=== PATIENT | male | born 1970 | race Asian ===

== ENCOUNTER 2017-08-04 17:38 | Inpatient (IN) | payer OTHER ==
[~2017-08-04] VITALS: Ht 180.3 cm; Wt 105.9 kg
--- NOTE | 2017-08-04 18:44 | ED GENERAL ADULT ---
History of Present Illness General Chief Complaint: General Adult Stated Complaint: SIB DR. MCMULLEN FOR FEVER, TRACHYCARDIA Source: patient, family Exam Limitations: no limitations Vital Signs & Intake/Output Vital Signs & Intake/Output Vital Signs Date Time Temp Pulse Resp B/P B/P Pulse O2 O2 Flow FiO2 Mean Ox Delivery Rate 08/04 2202 99.0 90 18 123/79 95 Room Air 08/04 1955 100.3 08/04 1919 103.1 08/04 1842 101.8 08/04 1821 Room Air 08/04 1807 103.0 114 15 121/83 96 Room Air Room Air ED Intake and Output 08/05 0000 08/04 1200 Intake Total 2200 Output Total Balance 2200 Intake, IV 2200 Patient 230 lb Weight Weight Reported by Patient Measurement Method Allergies Coded Allergies: No Known Allergies (08/04/17) Reconcile Medications Aspirin (Ecotrin*) 81 MG TABLET.DR 1 TAB PO DAILY HEART/BLOOD (Reported) Atorvastatin Calcium 20 MG TABLET 1 TAB PO DAILY CHOLESTEROL (Reported) Cholecalciferol (Vitamin D3) (Vitamin D) (Unknown Strength) TABLET (Unknown Dose) PO DAILY SUPPLEMENT (Reported) Empagliflozin (Jardiance) 10 MG TABLET 1 TAB PO DAILY DM (Reported) Metformin HCl 850 MG TABLET 1 TAB PO BID DM (Reported) Sitagliptin Phosphate (Januvia) 100 MG TABLET 1 TAB PO DAILY DM (Reported) Valsartan 160 MG TABLET 1 TAB PO DAILY BP (Reported) Triage Note: PT SENT TO ED BY DR. MCMULLEN FOR R/O DKA, INTERMITTENT PRODUCTIVE COUGH WITH YELLOW PHLEGM, ABD PAIN, NAUSEA, VOMITING. MID EPIGASTRIC PAIN. DENIES DIARRHEA. Triage Nurses Notes Reviewed? yes Onset: Gradual Duration: week(s): Timing: recent history Injury Environment: home Severity: moderate HPI: 46-year-old male with history of diabetes presents emergency department for evaluation of intermittent fevers and chills 2 weeks. Patient was sent in by Dr. Mcmullen to be evaluated for possible DKA. Patient states that he has had intermittent fevers and chills, malaise, nausea, dry heaving 2 weeks. Patient also reporting mild epigastric abdominal pain. Patient reports intermittent dry cough. Patient has not been checking his blood sugar regularly. Patient denies rash, shortness of breath, chest pain, diarrhea, urinary symptoms, sore throat. (Penelope Cook) Past History Travel History Traveled to [place] past 21 day No Medical History Any Pertinent Medical History? see below for history Neurological: NONE EENT: NONE Cardiovascular: hypertension, hyperlipidemia Respiratory: NONE Gastrointestinal: NONE Hepatic: NONE Renal: NONE Musculoskeletal: NONE Psychiatric: NONE Endocrine: diabetes Blood Disorders: NONE Cancer(s): NONE CHARGE MACHINE OPERATOR/Reproductive: NONE Surgical History Surgical History: non-contributory Psychosocial History What is your primary language Swedish Tobacco Use: Never used ETOH Use: denies use Illicit Drug Use: denies illicit drug use Family History Hx Contributory? No (Betsey ALONZO,Penelope Avila) Review of Systems Review of Systems Constitutional: Reports: see HPI. EENTM: Reports: no symptoms. Respiratory: Reports: see HPI. Cardiovascular: Reports: no symptoms. GI: Reports: see HPI. Genitourinary: Reports: no symptoms. Musculoskeletal: Reports: no symptoms. Skin: Reports: no symptoms. Neurological/Psychological: Reports: no symptoms. Hematologic/Endocrine: Reports: no symptoms. Immunologic/Allergic: Reports: no symptoms. All Other Systems: Reviewed and Negative (Betsey ALONZO,Penelope Avila) Physical Exam Physical Exam General Appearance: well developed/nourished, no apparent distress, alert, awake Head: atraumatic, normal appearance Eyes: Bilateral: normal appearance. Ears, Nose, Throat: hearing grossly normal Neck: normal inspection, supple, full range of motion Respiratory: normal breath sounds, no respiratory distress, lungs clear Cardiovascular: tachycardia Peripheral Pulses: 2+ radial (R), 2+ radial (L) Gastrointestinal: normal bowel sounds, soft, no organomegaly, mild epigastric tenderness Back: normal inspection, normal range of motion Extremities: normal inspection, normal range of motion Neurologic/Psych: awake, alert, oriented x 3 Skin: intact, normal color, warm/dry Core Measures ACS in differential dx? No CVA/TIA Diagnosis: No Sepsis Present: No Sepsis Focused Exam Completed? No (Penelope Cook) Progress Differential Diagnoses I considered the following diagnoses in my evaluation of the patient: Plan of Care: Orders Procedure Date/time Status Consistent Carbohydrate 2 08/05 B Active FingerStick- Glucose 08/05 0024 Active Admit to inpatient 08/04 2343 Active Code Status 08/04 2343 Active Patient Data 08/04 2337 Active Pathway - chart 08/04 2249 Active Pathway - chart 08/04 224 Active House Staff 08/04 224 Active Code Status 08/04 2247 Complete STREP PNEUMO URINARY ANTIGEN 08/04 2218 Active LEGIONELLA URINARY ANTIGEN 08/04 2215 Active Admit to inpatient 08/04 2143 Active Vital Signs 08/04 214 Active Code Status 08/04 2143 Complete LACTIC ACID 08/04 205 Active Add-on Test (ER Only) 08/04 203 Active Intake & Output 08/04 1955 Complete RAPID VIRAL INFLUENZA A 08/04 1808 Complete LIPID PANEL 08/04 1800 Active GLYCOSYLATED HGB 08/04 1800 Active AMYLASE 08/04 1800 Active Saline Lock 08/04 1753 Active FingerStick- Glucose 08/04 1753 Active CULTURE,URINE 08/04 1753 Active BLOOD CULTURE 08/04 1753 Active URINALYSIS 08/04 1753 Complete TROPONIN LEVEL 08/04 1753 Active SERUM OSMOLALITY 08/04 1753 Active LYME TITRE 08/04 1753 Active LIPASE 08/04 1753 Active LACTIC ACID 08/04 1753 Active COMPREHENSIVE METABOLIC PANEL 08/04 1753 Active CBC WITHOUT DIFFERENTIAL 08/04 1753 Complete ACETONE 08/04 1753 Active EKG 08/04 1749 Active VTE Mechanical Prophylaxis 08/04 UNK Active FingerStick- Glucose 08/04 UNK Complete Current Medications Sig/Kenn Start time Last Medication Dose Stop Time Status Admin Atorvastatin Calcium 20 MG 1700 08/05 1700 AC (Lipitor) Enoxaparin Sodium 40 MG DAILY 08/05 0900 AC (Lovenox) Pantoprazole Sodium 40 MG DAILY 08/05 0900 CAN (Protonix) Insulin Aspart 0 TIDAC 08/05 0800 CAN (NovoLOG) Insulin Aspart 0 TIDAC 08/05 0800 AC (NovoLOG) Acetaminophen 650 MG Q6P PRN 08/04 2300 AC (Tylenol) Hydrocodone Bitart/ 1 TAB Q6P PRN 08/04 2300 AC Acetaminophen (Vicodin) Oxycodone/ 2 TAB Q6P PRN 08/04 2300 AC Acetaminophen (Percocet) Dextrose/Lactated 1,000 ML Q10H 08/04 2044 AC Ringer's 08/05 1644 (D5W in Lactated Ringers) Sodium Chloride 1,000 ML ONCE ONE 08/04 2044 AC 08/04 (Normal Saline 0.9%) 08/05 0324 2156 Laboratory Tests 08/04/171907: Urine Color ORANG H, Urine Clarity CLDY H, Urine pH 5.5, Ur Specific [place] > = 1.030, Urine Protein 100 H, Urine Ketones 15 H, Urine Nitrite NEG, Urine Bilirubin NEG@ICTO, Urine Urobilinogen 0.2, Ur Leukocyte Esterase TRACE H, Ur Microscopic SEDIMENT EXAMINED, Urine RBC 1-3, Urine WBC 5-10 H, Ur Epithelial Cells FEW, Urine Bacteria FEW H, Urine Mucus MANY H, Urine Hemoglobin NEG, Urine Glucose 100 H 08/04/17 1800: Anion Gap 14, Estimated GFR > 60, BUN/Creatinine Ratio 10.0, Glucose 224 H, Hemoglobin A1c Pending, Serum Osmolality 283 L, Lactic Acid 1.4, Calcium 8.6, Total Bilirubin 1.5 H, AST 12 L, ALT 26, Alkaline Phosphatase 81, Troponin I < 0.01, Total Protein 7.2, Albumin 4.0, Globulin 3.2, Albumin/Globulin Ratio 1.3, Triglycerides 230 H, Cholesterol 119, LDL Cholesterol, Calc 50 L, HDL Cholesterol 23 L, Cholesterol/HDL Ratio 5 H, Amylase 57, Lipase 198, CBC w Diff NO MAN DIFF REQ, RBC 4.35 L, MCV 87.5, MCH 29.5, MCHC 33.7, RDW 14.6 H, MPV 7.5, Gran % 68.3, Lymphocytes % 21.0, Monocytes % 10.3 H, Eosinophils % 0.2 , Basophils % 0.2, Absolute Granulocytes 6.8 H, Absolute Lymphocytes 2.1, Absolute Monocytes 1.0 H, Absolute Eosinophils 0, Absolute Basophils 0, Lyme Disease Antibody Pending, Acetone Level NEGATIVE Microbiology 08/04 2217 URINE ROUT: Streptococcus pneumoniae Antigen (M - ORD 08/04 2214 URINE ROUT: Legionella Antigen - ORD 08/05 1907 URINE ROUT: Urine Culture - RECD 08/04 1840 BLOOD: Blood Culture - RECD 08/04 1800 BLOOD: Blood Culture - RECD 08/04 1610 NASOPHARYN: Influenza Virus A & B Rapid Smear - COMP Joseph Mcmullen MD present to see and evaluate the patient. He recommends hospital admission given this patient's persistent fevers for further evaluation of possible sepsis and intra-abdominal pathology. CT scan is pending. Joseph Mcmullen MD recommends continued fluids, IV Unasyn. Spoke with radiologist regarding this patient's CT scan - large mass in left kidney, appears malignant. No evidence of mets. Dr. Lobato was present to see and evaluate the patient and his family and inform them of these abnormal CAT scan findings. Patient to have urology consult during admission. Diagnostic Imaging: Viewed by Me: Radiology Read, CT Scan. Discussed w/RAD: Radiology Read, CT Scan. Radiology Impression: PATIENT: EDIS GUAN PRESENT AGE: 46 PATIENT ACCOUNT NO: [id number] : 72 LOCATION: [facility] ORDERING PHYSICIAN: Penelope ALONZO SERVICE DATE: 08/04/17 EXAM TYPE: CAT - CT ABD & PELVIS W IV CONTRAST EXAMINATION: CT ABDOMEN AND PELVIS WITH CONTRAST CLINICAL INFORMATION: Abdominal pain. Fevers. Chills. COMPARISON: None TECHNIQUE : Multidetector volumetric imaging was performed of the abdomen and pelvis following IV administration of 95 mL of Optiray 320 intravenous contrast. Sagittal and coronal reformatted images were obtained on the technologist's workstation. DLP: 640.37 mGy-cm FINDINGS: LUNG BASES: The visualized lung bases are unremarkable. LIVER, GALLBLADDER, AND BILIARY TREE: The liver is normal in size, shape, and attenuation. No focal hepatic lesion or biliary ductal dilatation is present. The gallbladder is unremarkable with no evidence of radiopaque gallstones, gallbladder wall thickening, or obvious pericholecystic inflammatory changes. PANCREAS: Unremarkable. SPLEEN: Unremarkable. ADRENAL GLANDS: Unremarkable. KIDNEYS AND URETERS: There is a heterogeneously enhancing mass in the inferior pole of the left kidney. This is highly suspicious for a neoplasm. The mass measures approximately 10.3 x 8.8 x 8.6 cm. The right kidney is normal. There is no hydronephrosis. There is no ureteral calculus. BLADDER: Unremarkable. GASTROINTESTINAL TRACT: The small and large bowel are unremarkable. The appendix is unremarkable. ABDOMINAL WALL: No significant hernia is appreciated. LYMPH NODES: There is no significant lymphadenopathy. VASCULAR: There is normal enhancement of the abdominal vasculature. No thickening of the renal veins to suggest thrombus or tumor invading the left renal vein. PELVIC VISCERA: Unremarkable. OSSEOUS STRUCTURES: Unremarkable. IMPRESSION: Large mass inferior pole of left kidney highly suspicious for neoplasm. This critical result was discussed with CLINTON Leggett on 08/04/2017, 9:50 PM and it was ascertained that the content and urgency of the report was understood at the time of direct communication. DICTATED BY: Eduardo Butts MD DATE/TIME DICTATED:08/04/172143 WHIZZER:BARNEY DATE/TIME TRANSCRIBED:2143 CONFIDENTIAL, DO NOT COPY WITHOUT APPROPRIATE AUTHORIZATION. < Electronically signed in Other Vendor System> SIGNED BY: Eduardo Butts MD 2156 CXR Impression: PATIENT: EDIS GUAN PRESENT AGE: 46 PATIENT ACCOUNT NO: [id number] : 72 LOCATION: ER ORDERING PHYSICIAN: Tripp ALONZO SERVICE DATE: 08/04/17 EXAM TYPE: RAD - XRY-CHEST XRAY, TWO VIEWS EXAMINATION: XR CHEST CLINICAL INFORMATION: Fever. Chills. COMPARISON: Chest x-ray 07/31/2013 TECHNIQUE: 2 views of the chest were obtained. FINDINGS: No significant abnormality is noted involving the heart, lungs, mediastinum, bony thorax or soft tissues. IMPRESSION: Unremarkable examination. DICTATED BY: Eduardo Butts MD DATE/TIME DICTATED:08/04/171900 WHIZZER:BARNEY DATE/TIME TRANSCRIBED:08/04/171900 CONFIDENTIAL, DO NOT COPY WITHOUT APPROPRIATE AUTHORIZATION. <Electronically signed in Other Vendor System> SIGNED BY: Eduardo Butts MD 08/04/171904, PATIENT: EDIS GUAN PRESENT AGE: 46 PATIENT ACCOUNT NO: [id number] : 72 LOCATION: [facility] ORDERING PHYSICIAN: Penelope ALONZO SERVICE DATE: 08/04/17 EXAM TYPE: CAT - CT ABD & PELVIS W IV CONTRAST EXAMINATION: CT ABDOMEN AND PELVIS WITH CONTRAST CLINICAL INFORMATION: Abdominal pain. Fevers. Chills. COMPARISON: None TECHNIQUE: Multidetector volumetric imaging was performed of the abdomen and pelvis following IV administration of 95 mL of Optiray 320 intravenous contrast. Sagittal and coronal reformatted images were obtained on the technologist's workstation. DLP: 640.37 mGy-cm FINDINGS: LUNG BASES: The visualized lung bases are unremarkable. LIVER, GALLBLADDER, AND BILIARY TREE: The liver is normal in size, shape, and attenuation. No focal hepatic lesion or biliary ductal dilatation is present. The gallbladder is unremarkable with no evidence of radiopaque gallstones, gallbladder wall thickening, or obvious pericholecystic inflammatory changes. PANCREAS: Unremarkable. SPLEEN: Unremarkable. ADRENAL GLANDS: Unremarkable. KIDNEYS AND URETERS: There is a heterogeneously enhancing mass in the inferior pole of the left kidney. This is highly suspicious for a neoplasm. The mass measures approximately 10.3 x 8.8 x 8.6 cm. The right kidney is normal. There is no hydronephrosis. There is no ureteral calculus. BLADDER: Unremarkable. GASTROINTESTINAL TRACT: The small and large bowel are unremarkable. The appendix is unremarkable. ABDOMINAL WALL: No significant hernia is appreciated. LYMPH NODES: There is no significant lymphadenopathy. VASCULAR: There is normal enhancement of the abdominal vasculature. No thickening of the renal veins to suggest thrombus or tumor invading the left renal vein. PELVIC VISCERA: Unremarkable. OSSEOUS STRUCTURES: Unremarkable. IMPRESSION: Large mass inferior pole of left kidney highly suspicious for neoplasm. This critical result was discussed with CLINTON Leggett on 08/04, 9:50 PM and it was ascertained that the content and urgency of the report was understood at the time of direct communication. DICTATED BY: Eduardo Butts MD DATE/TIME DICTATED:08/04/172143 WHIZZER:BARNEY DATE/TIME TRANSCRIBED:08/04/172143 CONFIDENTIAL, DO NOT COPY WITHOUT APPROPRIATE AUTHORIZATION. <Electronically signed in Other Vendor System> SIGNED BY: Eduardo Butts MD 08/04/172156 Initial ED EKG: SINUS TACHYCARDIA @114BPM (Penelope Cook) Departure Departure Disposition: STILL A PATIENT Condition: Stable Clinical Impression Primary Impression: Kidney mass Secondary Impressions: Abdominal pain Qualifiers: Abdominal location: epigastric Qualified Code: R10.13 - Epigastric pain Fever Qualifiers: Fever type: unspecified Qualified Code: R50.9 - Fever, unspecified Referrals: Joseph Mcmullen MD (PCP/Family) Departure Forms: Customer Survey General Discharge Information Admission Note Documentation of Exam: Documentation of any treatments & extenuating circumstances including Concerns Regarding Discharge (functional status, medication knowledge or non-compliance, living conditions, etc.) that warrant an admission rather than observation: [ kidney mass requiring urology consult] (Penelope Cook) Admission Note Spoke With: Joseph Mcmullen MD Documentation of Exam: Documentation of any treatments & extenuating circumstances including Concerns Regarding Discharge (functional status, medication knowledge or non-compliance, living conditions, etc.) that warrant an admission rather than observation: [ Patient needs admission for IV fluids, pain control, consider GI consult, IV antibiotics] I saw and evaluated the patient and I agree with the PAs evaluation (Marquis Lobato DO) Critical Care Note Critical Care Note Critical Care Time: non-applicable (Betsey ALONZO,Penelope Avila)
[2017-08-04 19:01] LABS: ABSOLUTE BASOPHIL COUNT 0 /CUMM (0.0-0.2); ABSOLUTE EOSINOPHIL COUNT 0 /CUMM (0.0-0.7); ABSOLUTE GRANULOCYTE CT 6.8 /CUMM (1.4-6.5); ABSOLUTE LYMPH COUNT 2.1 /CUMM (1.2-3.4); BASOPHIL % 0.2 % (0.0-2.0); EOSINOPHIL % 0.2 % (0-5); GRANULOCYTE % 68.3 % (42.2-75.2); HEMATOCRIT 38.1 % (42-52); MEAN CORPUSCULAR HGB 29.5 PG (27.0-31.0); MEAN CORPUSCULAR HGB CONC 33.7 G/DL (33.0-37.0); MEAN CORPUSCULAR VOLUME 87.5 FL (80.0-94.0); MEAN PLATELET VOLUME 7.5 FL (7.4-10.4); PLATELET COUNT 298 /CUMM (130-400); RBC DISTRIBUTION WIDTH 14.6 % (11.5-14.5); RED BLOOD CELL CT 4.35 /CUMM (4.70-6.10); WHITE BLOOD CELL COUNT 9.9 /CUMM (4.8-10.8)
--- NOTE | 2017-08-04 19:05 | RADIOLOGY REPORT ---
EXAMINATION: XR CHEST CLINICAL INFORMATION: Fever. Chills. COMPARISON: Chest x-ray 07/31/2013 TECHNIQUE: 2 views of the chest were obtained. FINDINGS: No significant abnormality is noted involving the heart, lungs, mediastinum, bony thorax or soft tissues. IMPRESSION: Unremarkable examination.
--- NOTE | 2017-08-04 21:07 | PN- Att Addend ---
Attending Addendum Attending Brief Note This is a gentleman who was sent in from my office because he was having significant upper abdominal discomfort and pain for more than a month or 2 duration. Lately he has had very high fever. Occasional cough but no sputum. No headache no sore throat. His abdominal discomfort has been on and off. He's been unable to eat well lately. He is had some dry heaving and one episode of vomiting. He denies any diarrhea. Denies any dysuria. No recent travel. He has significant history of diabetes on multiple medications and his last A1c was in the 7.5 range. He also has significant hypertriglyceridemia for which he is on multiple medications as well. It does not smoke or drink. He is on multiple medications but has not been taking them regularly. Patient is on Actos, jardiance, metformin, Januvia Neurological: NONE EENT: NONE Cardiovascular: hypertension, hyperlipidemia Respiratory: NONE Gastrointestinal: NONE Hepatic: NONE Renal: NONE Musculoskeletal: NONE Psychiatric: NONE Endocrine: diabetes Blood Disorders: NONE Cancer(s): NONE PROOF READER/Reproductive: NONE Psychosocial History What is your primary language Urdu Tobacco Use: Never used ETOH Use: denies use Illicit Drug Use: denies illicit drug use Vital Signs Date Time Temp Pulse Resp B/P B/P Pulse O2 O2 Flow FiO2 Mean Ox Delivery Rate 08/04 1954 100.3 08/04 191 103.1 08/04 184 101.8 08/04 1821 Room Air 08/04 1806 103.0 114 15 121/83 96 Room Air Room Air Laboratory Tests 08/04/17 1908: Urine Color ORANG H, Urine Clarity CLDY H, Urine pH 5.5, Ur Specific [place] > = 1.030, Urine Protein 100 H, Urine Ketones 15 H, Urine Nitrite NEG, Urine Bilirubin NEG@ICTO, Urine Urobilinogen 0.2, Ur Leukocyte Esterase TRACE H, Ur Microscopic SEDIMENT EXAMINED, Urine RBC 1-3, Urine WBC 5-10 H, Ur Epithelial Cells FEW, Urine Bacteria FEW H, Urine Mucus MANY H, Urine Hemoglobin NEG, Urine Glucose 100 H 08/04/17 1800: Anion Gap 14, Estimated GFR > 60, BUN/Creatinine Ratio 10.0, Glucose 224 H, Hemoglobin A1c Pending, Serum Osmolality 283 L, Lactic Acid 1.4, Calcium 8.6, Total Bilirubin 1.5 H, AST 12 L, ALT 26, Alkaline Phosphatase 81, Troponin I < 0.01, Total Protein 7.2, Albumin 4.0, Globulin 3.2, Albumin/Globulin Ratio 1.3, Triglycerides 230 H, Cholesterol 119, LDL Cholesterol, Calc 50 L, HDL Cholesterol 23 L, Cholesterol/HDL Ratio 5 H, Amylase 57, Lipase 198, CBC w Diff NO MAN DIFF REQ, RBC 4.35 L, MCV 87.5, MCH 29.5, MCHC 33.7, RDW 14.6 H, MPV 7.5, Gran % 68.3, Lymphocytes % 21.0, Monocytes % 10.3 H, Eosinophils % 0.2 , Basophils % 0.2, Absolute Granulocytes 6.8 H, Absolute Lymphocytes 2.1, Absolute Monocytes 1.0 H, Absolute Eosinophils 0, Absolute Basophils 0, Lyme Disease Antibody Pending, Acetone Level NEGATIVE Microbiology Date/Time Procedure - Status Source Growth 08/04 190 Urine Culture - RECD URINE ROUT 08/04 1840 Blood Culture - RECD BLOOD 08/04 1610 Influenza Virus A & B Rapid Smear - COMP NASOPHARYN Orders Procedure Date/time Status LACTIC ACID 08/[address] ABD & PELVIS W IV CONTRAST 08/04 2040 Active Add-on Test (ER Only) 08/04 203 Active RAPID VIRAL INFLUENZA A 08/04 1808 Complete LIPID PANEL 08/04 1800 Active GLYCOSYLATED HGB 08/04 1800 Active AMYLASE 08/04 1800 Active Saline Lock 08/04 175 Active FingerStick- Glucose 08/04 1753 Active CULTURE,URINE 08/04 175 Active BLOOD CULTURE 08/04 1753 Active URINALYSIS 08/04 1753 Complete TROPONIN LEVEL 08/04 1753 Active SERUM OSMOLALITY 08/04 1753 Active LYME TITRE 08/04 1753 Active LIPASE 08/04 1753 Active LACTIC ACID 08/04 1753 Active COMPREHENSIVE METABOLIC PANEL 08/04 1753 Active CBC WITHOUT DIFFERENTIAL 08/04 1753 Complete ACETONE 08/04 1753 Active EKG 08/04 1749 Active Pupils reacting extraocular movements intact no icterus Posterior pharynx unremarkable Neck supple no JVD no lymphadenopathy Chest clear to auscultation Heart S1-S2 was heard no murmurs Mild abdominal tenderness in the epigastric area No cyanosis clubbing or edema Blood work reviewed anion gap is 14 amylase lipase has been normal at lactic acid normal lipid panel pending improvement elevated at 1.5 white count 9.9 with left shift urinalysis showed 5-10 WBCs 15 ketones and elevated protein and leukocyte esterase trace Chest x-ray unremarkable IMPRESSION This is a gentleman with history of diabetes on multiple oral hypoglycemic agents, hyperlipidemia, hypertension on СЕРГЕЙ inhibitor, recently has not been taking his medications, now has elevated temperature 103.5, abdominal discomfort , elevated bilirubin. He does have mildly positive dirty urine. No recent travel history. No history suggestive of diabetic ketoacidosis at this present time. No significant anion gap acidosis on lactic acidosis. Most likely source could be upper abdominal source. PLAN/recommendation CT scan of abdomen and pelvis with IV contrast Intravenous fluids Keep nothing by mouth until tomorrow IV proton pump inhibitor D5 Ringer's lactate 100 mL per hour after the 2 L bolus High-dose Unasyn Check lipid panel, hemoglobin A1c Urine culture Legionella urinary antigen and strep pneumo antigen Fingerstick glucose and use sliding scale insulin Watch his temperature If all investigations are negative start him on Tamiflu 75 twice a day Send viral cultures if all other investigations are negative from his nasal swab Discussed with house staff and family
[2017-08-04] MEDS ORDERED: ATORVASTATIN CA20 M1 PO (21:53)
[2017-08-04] MEDS ORDERED: ASPIRIN EC81 M1 PO (21:53)
[2017-08-04] MEDS ORDERED: METFORMIN HCL850 M1 PO (21:53)
[2017-08-04] MEDS ORDERED: JANUVIA100 M1 PO (21:54)
[2017-08-04] MEDS ORDERED: VALSARTAN160 M1 PO (21:54)
[2017-08-04] MEDS ORDERED: JARDIANCE10 M1 PO (21:54)
[2017-08-04] MEDS ORDERED: VITAMIN D1000 UNIT PO (21:55)
--- NOTE | 2017-08-04 21:57 | CT SCAN REPORT ---
EXAMINATION: CT ABDOMEN AND PELVIS WITH CONTRAST CLINICAL INFORMATION: Abdominal pain. Fevers. Chills. COMPARISON: None TECHNIQUE: Multidetector volumetric imaging was performed of the abdomen and pelvis following IV administration of 95 mL of Optiray 320 intravenous contrast. Sagittal and coronal reformatted images were obtained on the technologist's workstation. DLP: 640.37 mGy-cm FINDINGS: LUNG BASES: The visualized lung bases are unremarkable. LIVER, GALLBLADDER, AND BILIARY TREE: The liver is normal in size, shape, and attenuation. No focal hepatic lesion or biliary ductal dilatation is present. The gallbladder is unremarkable with no evidence of radiopaque gallstones, gallbladder wall thickening, or obvious pericholecystic inflammatory changes. PANCREAS: Unremarkable. SPLEEN: Unremarkable. ADRENAL GLANDS: Unremarkable. KIDNEYS AND URETERS: There is a heterogeneously enhancing mass in the inferior pole of the left kidney. This is highly suspicious for a neoplasm. The mass measures approximately 10.3 x 8.8 x 8.6 cm. The right kidney is normal. There is no hydronephrosis. There is no ureteral calculus. BLADDER: Unremarkable. GASTROINTESTINAL TRACT: The small and large bowel are unremarkable. The appendix is unremarkable. ABDOMINAL WALL: No significant hernia is appreciated. LYMPH NODES: There is no significant lymphadenopathy. VASCULAR: There is normal enhancement of the abdominal vasculature. No thickening of the renal veins to suggest thrombus or tumor invading the left renal vein. PELVIC VISCERA: Unremarkable. OSSEOUS STRUCTURES: Unremarkable. IMPRESSION: Large mass inferior pole of left kidney highly suspicious for neoplasm. This critical result was discussed with CLINTON Leggett on 08/04/2017, 9:50 PM and it was ascertained that the content and urgency of the report was understood at the time of direct communication.
--- NOTE | 2017-08-04 22:04 | History & Physical ---
General Information and HPI MD Statement: I have seen and personally examined EDIS GUAN and documented this H&P. The patient is a 46 year old M who presented with a patient stated chief complaint of [generalized abdominal pain, fever, nausea]. Source of Information: patient, family, PCP Exam Limitations: no limitations History of Present Illness: This is a 46-year-old gentleman past medical history of diabetes (last HbA1c 7.5 ) on oral hypoglycemic agents (metformin 850 mg twice a day, Januvia 100 mg daily and Jardiance was sent to the emergency room by his primary care physician Joseph Roblero MD for prolonged abdominal pain, nausea and vomiting. According to patient his abdominal pain is epigastric, without radiation, 2-3 out of 10 constant and dull. According to patient pain is started about 2-3 months ago without any alleviating or relieving factor and initially was not accompanied with any other symptoms. Over the past week patient gradually lost his appetite felt nauseous and vomited once. He denies any diarrhea, dysuria, recent travel, sick contact. His social history is insignificant. On a separate note patient has a history of hypertension and hyperlipidemia. Allergies/Medications Allergies: Coded Allergies: No Known Allergies (08/04/17) Home Med list Aspirin (Ecotrin*) 81 MG TABLET.DR 1 TAB PO DAILY HEART/BLOOD (Reported) Atorvastatin Calcium 20 MG TABLET 1 TAB PO DAILY CHOLESTEROL (Reported) Cholecalciferol (Vitamin D3) (Vitamin D) (Unknown Strength) TABLET (Unknown Dose) PO DAILY SUPPLEMENT (Reported) Empagliflozin (Jardiance) 10 MG TABLET 1 TAB PO DAILY DM (Reported) Metformin HCl 850 MG TABLET 1 TAB PO BID DM (Reported) Sitagliptin Phosphate (Januvia) 100 MG TABLET 1 TAB PO DAILY DM (Reported) Valsartan 160 MG TABLET 1 TAB PO DAILY BP (Reported) Compliance With Home Meds: GOOD Past History Travel History Traveled to [place] past 21 day No Medical History Neurological: NONE EENT: NONE Cardiovascular: hypertension, hyperlipidemia Respiratory: NONE Gastrointestinal: NONE Hepatic: NONE Renal: NONE Musculoskeletal: NONE Psychiatric: NONE Endocrine: diabetes Blood Disorders: NONE Cancer(s): NONE DRIER UNLOADER/Reproductive: NONE Surgical History Surgical History: none Past Family/Social History Psychosocial History ETOH Use: denies use Illicit Drug Use: denies illicit drug use Functional Ability ADLs Independent: dressing, eating, toileting, bathing. Ambulation: independent Review of Systems Review of Systems Constitutional: Reports: see HPI. Cardiovascular: Reports: see HPI. Respiratory: Reports: see HPI. GI: Reports: abdominal pain, nausea, vomiting. Denies: diarrhea, distention, bowel incontinence, melena, bloody stool, changes in stool. Musculoskeletal: Reports: see HPI. Exam & Diagnostic Data Last 24 Hrs of Vital Signs/I&O Vital Signs Date Time Temp Pulse Resp B/P B/P Pulse O2 O2 Flow FiO2 Mean Ox Delivery Rate 08/04 2203 99.0 90 18 123/79 95 Room Air 08/04 1955 100.3 08/04 1919 103.1 08/04 1842 101.8 08/04 1821 Room Air 08/04 1807 103.0 114 15 121/83 96 Room Air Room Air Physical Exam General Appearance Alert, Oriented X3, Cooperative HEENT PERRLA, EOMI Cardiovascular Normal S1, Normal S2, No Murmurs Lungs Clear to Auscultation, Normal Air Movement Abdomen Soft, mild tenderness Last 24 Hrs of Labs/Terrence: Laboratory Tests 08/04/17 1908: Urine Color ORANG H, Urine Clarity CLDY H, Urine pH 5.5, Ur Specific [place] > = 1.030, Urine Protein 100 H, Urine Ketones 15 H, Urine Nitrite NEG, Urine Bilirubin NEG@ICTO, Urine Urobilinogen 0.2, Ur Leukocyte Esterase TRACE H, Ur Microscopic SEDIMENT EXAMINED, Urine RBC 1-3, Urine WBC 5-10 H, Ur Epithelial Cells FEW, Urine Bacteria FEW H, Urine Mucus MANY H, Urine Hemoglobin NEG, Urine Glucose 100 H 08/04/17 1800: Anion Gap 14, Estimated GFR > 60, BUN/Creatinine Ratio 10.0, Glucose 224 H, Hemoglobin A1c Pending, Serum Osmolality 283 L, Lactic Acid 1.4, Calcium 8.6, Total Bilirubin 1.5 H, AST 12 L, ALT 26, Alkaline Phosphatase 81, Troponin I < 0.01, Total Protein 7.2, Albumin 4.0, Globulin 3.2, Albumin/Globulin Ratio 1.3, Triglycerides 230 H, Cholesterol 119, LDL Cholesterol, Calc 50 L, HDL Cholesterol 23 L, Cholesterol/HDL Ratio 5 H, Amylase 57, Lipase 198, CBC w Diff NO MAN DIFF REQ, RBC 4.35 L, MCV 87.5, MCH 29.5, MCHC 33.7, RDW 14.6 H, MPV 7.5, Gran % 68.3, Lymphocytes % 21.0, Monocytes % 10.3 H, Eosinophils % 0.2 , Basophils % 0.2, Absolute Granulocytes 6.8 H, Absolute Lymphocytes 2.1, Absolute Monocytes 1.0 H, Absolute Eosinophils 0, Absolute Basophils 0, Lyme Disease Antibody Pending, Acetone Level NEGATIVE Microbiology 08/04 2217 URINE ROUT: Streptococcus pneumoniae Antigen (M - ORD 08/04 221 URINE ROUT: Legionella Antigen - ORD 08/04 1908 URINE ROUT: Urine Culture - RECD 08/04 1840 BLOOD: Blood Culture - RECD 08/04 1800 BLOOD: Blood Culture - RECD 08/04 1610 NASOPHARYN: Influenza Virus A & B Rapid Smear - COMP Diagnostic Data Other Results KIDNEYS AND URETERS: There is a heterogeneously enhancing mass in the inferior pole of the left kidney. This is highly suspicious for a neoplasm. The mass measures approximately 10.3 x 8.8 x 8.6 cm. The right kidney is normal. There is no hydronephrosis. There is no ureteral calculus. Assessment/Plan Assessment: This is a 46-year-old gentleman with significant past medical history of diabetes admitted for generalized abdominal pain, low-grade fever, mild nausea and vomiting of 2 months. Urinalysis showed protein of 100 urine ketones 15 leukocyte esterase high WBC 5- 10 RBC 1-3 Anion Gap 14, Estimated GFR > 60, BUN/Creatinine Ratio 10.0, Glucose 224 H, Hemoglobin A1c Pending, Serum Osmolality 283 L, Lactic Acid 1.4, Calcium 8.6, Total Bilirubin 1.5 H, AST 12 L, ALT 26, Alkaline Phosphatase 81, Troponin I < 0.01, Total Protein 7.2, Albumin 4.0, Globulin 3.2, Albumin/Globulin Ratio 1.3, Triglycerides 230 H, LDL Cholesterol, Calc 50 L, HDL Cholesterol 23 L, Cholesterol/HDL Ratio 5 H, CT scan of the abdominal pelvis with contrast was obtained: There is a heterogeneously enhancing mass in the inferior pole of the left kidney. This is highly suspicious for a neoplasm. The mass measures approximately 10.3 x 8.8 x 8.6 cm. The right kidney is normal. There is no hydronephrosis. List of differential diagnosis Accidental finding of left kidney RCC DKA Viral gastroenteritis Pancreatitis UTI Plan * Admit to general medical floor * Keep nothing by mouth * IV Protonix 40 mg daily * D5 normal saline 100 mL 2 backs * Received 1 dose of Unasyn-no further antibiotics * Attending Joseph Roblero MD was informed the results of the CT scan; no further workup for now * Accu-Chek Q6 * Stop all the oral hypoglycemic agents * Insulin sliding scale fro NPO patients * Hold valsartan and reassess in the a.m. * Continue atorvastatin Full code DVT prophylaxis with Lovenox in the setting of malignancy As Ranked By This Provider Problem List: 1. Kidney mass Core Measures/Misc (01/08) Acute Coronary Syndrome ACS Diagnosis: No Congestive Heart Failure Congestive Heart Failure Diagnosis No Cerebrovascular Accident CVA/TIA Diagnosis: No VTE (View Protocol) VTE Risk Factors Obesity No Mechanical VTE Prophylaxis d/t N/A MechProphylax Ordered No VTE Pharm Prophylaxis d/t NA PharmProphylax ordered Sepsis (View protocol) Sepsis Present: No Resident Review Statement Resident Statement: examined this patient, discussed with financial internship, agreed with financial internship, discussed with family, reviewed EMR data (avail), discussed with nursing , discussed with case mgmt, reviewed images, amended to note
[2017-08-05 01:59] VITALS: BP 128/80
[2017-08-05 06:26] VITALS: BP 136/90
--- NOTE | 2017-08-05 07:04 | PN- Housestaff ---
Subjective Follow-up For: Left kidney measures suspicious for RCC presented with paraneoplastic symptoms Complaints: mild diffuse abdominal pain Subjective: Patient was admitted last night to general medical floor for assessment of protracted abdominal pain, nausea and intermittent fever. Initially thought process was leaning towards infectious causes such as intra-abdominal abscesses, or even biliary sepsis or diverticulitis or intense inflammatory conditions such as pancreatitis. Patient has not been taking his oral hypoglycemic agents and there was a concern that his symptoms are the prodromal symptoms of DKA. Initial workup showed leukocytosis with left shift and no bandemia. CT scan of the abdominal folds and IV contrast showed a 10 cm mass in the lower pole of the left kidney. Patient received 2 bags of D5 saline. Currently on carbohydrate diets and insulin coverage. He is on antihypertensive medication was initially felt due to borderline blood pressure. Patient was visited and examined this morning. His symptoms of nausea and abdominal pain has improved. Vital signs showed stable blood pressure, tachycardia and frequent spikes of fever with highest temperature 103. Patient mentions mild diffuse abdominal pain. Review of Systems Constitutional: Reports: see HPI. Gastrointestinal: Reports: see HPI, abdominal pain. Denies: nausea, changes in stool, vomiting. Objective Last 24 Hrs of Vital Signs/I&O Vital Signs Date Time Temp Pulse Resp B/P B/P Pulse O2 O2 Flow FiO2 Mean Ox Delivery Rate 08/05 0626 99.6 101 20 136/90 93 Room Air 08/05 0330 99.6 08/05 0159 100.0 105 20 128/80 96 Room Air 08/05 0151 100.0 08/04 2203 99.0 90 18 123/79 95 Room Air 08/04 1955 100.3 08/04 1919 103.1 08/04 1842 101.8 08/04 1821 Room Air 08/04 1807 103.0 114 15 121/83 96 Room Air Room Air Intake & Output 08/05 0800 08/05 0000 08/04 1600 Intake Total 2200 Output Total Balance 2200 Intake, IV 2200 Patient 234 lb 230 lb Weight Weight Bed scale Reported by Patient Measurement Method Physical Exam General Appearance: Alert, Oriented X3, Cooperative Skin: No Rashes, No Breakdown, No Significant Lesion Cardiovascular: Normal S1, Normal S2, No Murmurs Lungs: Clear to Auscultation, Normal Air Movement Abdomen: Soft, No Tenderness, No Hepatospenomegaly Extremities: No Cyanosis, No Edema Current Medications: Current Medications Sig/Kenn Start time Last Medication Dose Route Stop Time Status Admin Acetaminophen 500 MG Q6P PRN 08/05 0145 AC PO Acetaminophen 650 MG Q6P PRN 08/04 2300 AC 08/05 PO 0151 Acetaminophen 0 .STK-MED ONE 08/04 1922 DC IV Acetaminophen 1,000 MG ONCE ONE 08/04 1914 DC 08/04 N/A 1 UNIT IV 08/04 Ampicillin Sodium/ 0 .STK-MED ONE 08/04 2109 DC Sulbactam Sodium .ROUTE Ampicillin Sodium/ 3,000 MG ONCE ONE 08/04 2044 DC 08/04 Sulbactam Sodium IV 08/04 2113 2156 Sodium Chloride 100 ML Atorvastatin Calcium 20 MG 1700 08/05 1700 AC PO Dextrose/Lactated 1,000 ML Q10H 08/04 204 AC 08/05 Ringer's IV 08/05 1644 0150 Enoxaparin Sodium 40 MG DAILY 08/05 0900 AC SC Hydrocodone Bitart/ 1 TAB Q6P PRN 08/04 2300 AC Acetaminophen PO Insulin Aspart 0 AT BEDTIME 08/05 2100 AC SC Insulin Aspart 0 TIDAC 08/05 0800 CAN SC Insulin Aspart 0 TIDAC 08/05 0800 AC SC Insulin Aspart 4 UNITS ONCE ONE 08/05 0145 DC 08/05 SC 08/05 0146 0159 Insulin Aspart 0 AT BEDTIME 08/05 0130 DC SC Insulin Human Regular 0 Q6 08/04 2359 DC SC Oxycodone/ 2 TAB Q6P PRN 08/04 2300 AC Acetaminophen PO Pantoprazole Sodium 40 MG DAILY 08/05 0900 CAN IV Sodium Chloride 1,000 ML ONCE ONE 08/04 2044 DC 08/04 IV 08/05 0324 2156 Sodium Chloride 1,000 ML BOLUS ONE 08/04 1914 DC 08/04 IV 08/04 Sodium Chloride 1,000 ML BOLUS ONE 08/04 183 DC 08/04 IV 08/04 Last 24 Hrs of Lab/Terrence Results Last 24 Hrs of Labs/Mics: Laboratory Tests 08/04/17 1908: Urine Color ORANG H, Urine Clarity CLDY H, Urine pH 5.5, Ur Specific [place] > = 1.030, Urine Protein 100 H, Urine Ketones 15 H, Urine Nitrite NEG, Urine Bilirubin NEG@ICTO, Urine Urobilinogen 0.2, Ur Leukocyte Esterase TRACE H, Ur Microscopic SEDIMENT EXAMINED, Urine RBC 1-3, Urine WBC 5-10 H, Ur Epithelial Cells FEW, Urine Bacteria FEW H, Urine Mucus MANY H, Urine Hemoglobin NEG, Urine Glucose 100 H 08/04/17 1800: Anion Gap 14, Estimated GFR > 60, BUN/Creatinine Ratio 10.0, Glucose 224 H, Hemoglobin A1c Pending, Serum Osmolality 283 L, Lactic Acid 1.4, Calcium 8.6, Total Bilirubin 1.5 H, AST 12 L, ALT 26, Alkaline Phosphatase 81, Troponin I < 0.01, Total Protein 7.2, Albumin 4.0, Globulin 3.2, Albumin/Globulin Ratio 1.3, Triglycerides 230 H, Cholesterol 119, LDL Cholesterol, Calc 50 L, HDL Cholesterol 23 L, Cholesterol/HDL Ratio 5 H, Amylase 57, Lipase 198, CBC w Diff NO MAN DIFF REQ, RBC 4.35 L, MCV 87.5, MCH 29.5, MCHC 33.7, RDW 14.6 H, MPV 7.5, Gran % 68.3, Lymphocytes % 21.0, Monocytes % 10.3 H, Eosinophils % 0.2 , Basophils % 0.2, Absolute Granulocytes 6.8 H, Absolute Lymphocytes 2.1, Absolute Monocytes 1.0 H, Absolute Eosinophils 0, Absolute Basophils 0, Lyme Disease Antibody Pending, Acetone Level NEGATIVE Microbiology 08/04 2217 URINE ROUT: Streptococcus pneumoniae Antigen (M - ORD 08/04 221 URINE ROUT: Legionella Antigen - ORD 08/04 1908 URINE ROUT: Urine Culture - RECD 08/04 1840 BLOOD: Blood Culture - RECD 08/04 1800 BLOOD: Blood Culture - RECD 08/04 1610 NASOPHARYN: Influenza Virus A & B Rapid Smear - COMP Assessment/Plan Assessment: 46-year-old gentleman with past medical history of diabetes was admitted for abdominal pain and fever of unknown origin and was found to have left kidney mass is highly suspicious for malignancy. List of active problems #1 left kidney mass #2 possible paraneoplastic symptoms in the setting of ?? RCC #3 mild hypothyroid hyponatremia secondary to dehydration #4 leukocytosis without source of infection * Carbohydrate consistent diet * Insulin sliding scale and bedtime * Tylenol 500 mg every 4 as needed for fever * Watch of antibiotics; fevers of part of her neoplastic symptoms of cancer * Resume his antihypertensive and cholesterol medication Problem List: 1. Kidney mass Pain Ratin Pain Location: Generalized abdominal pain/epigastric Pain Goal: Remain pain free Pain Plan: pain pathway Tomorrow's Labs & Rationales: Does not deem required DVT/Prophylaxis: pharmacological
--- NOTE | 2017-08-05 13:07 | PN- Pulmonary ---
Subjective HPI/Critical Care Issues: Patient was visited and examined this morning. His symptoms of nausea and abdominal pain has improved. However had one episode of vomiting this morning Sugars still elevated requiring insulin Vital signs showed stable blood pressure, tachycardia and frequent spikes of fever with highest temperature 103. Patient mentions mild diffuse abdominal pain. Objective Current Medications: Current Medications Sig/Kenn Start time Last Medication Dose Route Stop Time Status Admin Acetaminophen 500 MG Q6P PRN 08/05 0145 AC PO Acetaminophen 650 MG Q6P PRN 08/04 2300 AC 08/05 PO 0753 Acetaminophen 0 .STK-MED ONE 08/04 1922 DC IV Acetaminophen 1,000 MG ONCE ONE 08/04 1914 DC 08/04 N/A 1 UNIT IV 08/04 Ampicillin Sodium/ 0 .STK-MED ONE 08/04 2109 DC Sulbactam Sodium .ROUTE Ampicillin Sodium/ 3,000 MG ONCE ONE 08/04 2044 DC 08/04 Sulbactam Sodium IV 08/04 2113 215 Sodium Chloride 100 ML Atorvastatin Calcium 20 MG 1700 08/05 1700 AC PO Dextrose/Lactated 1,000 ML Q10H 08/04 2044 AC 08/05 Ringer's IV 08/05 1644 0150 Enoxaparin Sodium 40 MG DAILY 08/05 0900 AC 08/05 SC 1010 Hydrocodone Bitart/ 1 TAB Q6P PRN 08/04 2300 AC Acetaminophen PO Insulin Aspart 0 AT BEDTIME 08/05 2100 AC SC Insulin Aspart 0 TIDAC 08/05 0800 CAN SC Insulin Aspart 0 TIDAC 08/05 0800 AC 08/05 SC 0901 Insulin Aspart 4 UNITS ONCE ONE 08/05 0145 DC 08/05 SC 08/05 0146 0159 Insulin Aspart 0 AT BEDTIME 08/05 0130 DC SC Insulin Human Regular 0 Q6 08/04 2359 DC SC Losartan Potassium 100 MG DAILY 08/05 0900 AC 08/05 PO 1010 Ondansetron HCl 4 MG Q4 HRS NEEDED PRN 08/05 1230 AC IV Oxycodone/ 2 TAB Q6P PRN 08/04 2300 AC Acetaminophen PO Pantoprazole Sodium 40 MG DAILY 08/05 0900 CAN IV Sodium Chloride 1,000 ML ONCE ONE 08/04 2044 DC 08/04 IV 08/05 0324 2156 Sodium Chloride 1,000 ML BOLUS ONE 08/04 1914 DC 08/04 IV 08/04 Sodium Chloride 1,000 ML BOLUS ONE 08/04 1830 DC 08/04 IV 08/04 Vital Signs & I&O Last 24 Hrs of Vitals and I&O: Vital Signs Date Time Temp Pulse Resp B/P B/P Pulse O2 O2 Flow FiO2 Mean Ox Delivery Rate 08/05 1012 98.0 08/05 1010 100.5 101 20 136/90 08/05 0753 100.5 08/05 0626 99.6 101 20 136/90 93 Room Air 08/05 0330 99.6 08/05 015 100.0 105 20 128/80 96 Room Air 08/05 0151 100.0 08/04 220 99.0 90 18 123/79 95 Room Air 08/04 1954 100.3 08/04 1918 103.1 08/04 184 101.8 08/04 1821 Room Air 08/04 180 103.0 114 15 121/83 96 Room Air Room Air Intake & Output 08/05 1600 08/05 0800 08/05 0000 Intake Total 1180 2200 Output Total Balance 1180 2200 Intake, IV 700 2200 Intake, Oral 480 Patient 234 lb 230 lb Weight Weight Bed scale Reported by Patient Measurement Method Laboratory Tests 08/05 08/05 08/04 0802 0802 1908 Chemistry Sodium (137 - 145 mmol/L) 138 Potassium (3.5 - 5.1 mmol/L) 3.9 Chloride (98 - 107 mmol/L) 104 Carbon Dioxide (22 - 30 mmol/L) 22 Anion Gap (5 - 16) 12 BUN (9 - 20 mg/dL) 5 L Creatinine (0.7 - 1.2 mg/dL) 0.6 L Estimated GFR (>60 ml/min) > 60 BUN/Creatinine Ratio (7 - 25 %) 8.3 Lactic Acid (0.7 - 2.1 mmol/L) 1.4 Total Bilirubin (0.2 - 1.3 mg/dL) 0.8 Direct Bilirubin (< 0.4 mg/dL) 0.5 H AST (17 - 59 U/L) 9 L ALT (21 - 72 U/L) 18 L Alkaline Phosphatase (< 127 U/L) 59 Total Protein (6.3 - 8.2 g/dL) 5.4 L Albumin (3.5 - 5.0 g/dL) 2.7 L Urines Urine Color (YEL,AMB,STR) ORANG H Urine Clarity (CLEAR) CLDY H Urine pH (5.0 - 8.0) 5.5 Ur Specific [place] (1.001 - 1.035) >= 1.030 Urine Protein (NEG,<30 MG/DL) 100 H Urine Ketones (NEG) 15 H Urine Nitrite (NEG) NEG Urine Bilirubin (NEG) NEG@ICTO Urine Urobilinogen (0.1 - 1.0 EU/dl) 0.2 Ur Leukocyte Esterase (NEG) TRACE H Ur Microscopic SEDIMENT EXAMINED Urine RBC (0 - 5 /HPF) 1-3 Urine WBC (0 - 2 /HPF) 5-10 H Ur Epithelial Cells (NONE,FEW) FEW Urine Bacteria (NEG/NONE) FEW H Urine Mucus (FEW,NONE) MANY H Urine Hemoglobin (NEG) NEG Urine Glucose (N MG/DL) 100 H 08/04 08/04 1800 0802 Chemistry Sodium (137 - 145 mmol/L) 135 L Potassium (3.5 - 5.1 mmol/L) 4.1 Chloride (98 - 107 mmol/L) 97 L Carbon Dioxide (22 - 30 mmol/L) 24 Anion Gap (5 - 16) 14 BUN (9 - 20 mg/dL) 9 Creatinine (0.7 - 1.2 mg/dL) 0.9 Estimated GFR (>60 ml/min) > 60 BUN/Creatinine Ratio (7 - 25 %) 10.0 Glucose (65 - 99 mg/dL) 224 H Hemoglobin A1c (4.2 - 5.8 %) Pending Serum Osmolality (285 - 295 MOSM/KG) 283 L Lactic Acid (0.7 - 2.1 mmol/L) 1.4 Cancelled Calcium (8.4 - 10.2 mg/dL) 8.6 Total Bilirubin (0.2 - 1.3 mg/dL) 1.5 H AST (17 - 59 U/L) 12 L ALT (21 - 72 U/L) 26 Alkaline Phosphatase (< 127 U/L) 81 Troponin I (<0.11 ng/ml) < 0.01 Total Protein (6.3 - 8.2 g/dL) 7.2 Albumin (3.5 - 5.0 g/dL) 4.0 Globulin (1.9 - 4.2 gm/dL) 3.2 Albumin/Globulin Ratio (1.1 - 2.2 %) 1.3 Triglycerides (<150 mg/dL) 230 H Cholesterol (< 200 MG/DL) 119 LDL Cholesterol, Calc (65 - 129 mg/dL) 50 L HDL Cholesterol (40 - 60 mg/dL) 23 L Cholesterol/HDL Ratio (0.00 - 4.88 %) 5 H Amylase (30 - 110 U/L) 57 Lipase (23 - 300 U/L) 198 Hematology CBC w Diff NO MAN DIFF REQ WBC (4.8 - 10.8 /CUMM) 9.9 RBC (4.70 - 6.10 /CUMM) 4.35 L Hgb (14.0 - 18.0 G/DL) 12.8 L Hct (42 - 52 %) 38.1 L MCV (80.0 - 94.0 FL) 87.5 MCH (27.0 - 31.0 PG) 29.5 MCHC (33.0 - 37.0 G/DL) 33.7 RDW (11.5 - 14.5 %) 14.6 H Plt Count (130 - 400 /CUMM) 298 MPV (7.4 - 10.4 FL) 7.5 Gran % (42.2 - 75.2 %) 68.3 Lymphocytes % (20.5 - 51.1 %) 21.0 Monocytes % (1.7 - 9.3 %) 10.3 H Eosinophils % (0 - 5 %) 0.2 Basophils % (0.0 - 2.0 %) 0.2 Absolute Granulocytes (1.4 - 6.5 /CUMM) 6.8 H Absolute Lymphocytes (1.2 - 3.4 /CUMM) 2.1 Absolute Monocytes (0.10 - 0.60 /CUMM) 1.0 H Absolute Eosinophils (0.0 - 0.7 /CUMM) 0 Absolute Basophils (0.0 - 0.2 /CUMM) 0 Serology Lyme Disease Antibody Pending Toxicology Acetone Level (NEGATIVE) NEGATIVE Microbiology Date/Time Procedure - Status Source Growth 08/04 2217 Streptococcus pneumoniae Antigen (M - ORD URINE ROUT 08/04 2214 Legionella Antigen - ORD URINE ROUT 08/04 1908 Urine Culture - RES URINE ROUT 08/04 1840 Blood Culture - RECD BLOOD 08/04 1800 Blood Culture - RECD BLOOD 08/04 1610 Influenza Virus A & B Rapid Smear - COMP NASOPHARYN Impression/Plan Impression/Plan Impression/Plan: This is a gentleman with type 2 diabetes, essential hypertension, hyperlipidemia , vitamin D deficiency, obesity, on and off snoring with upper airway resistant syndrome, recent A1c of 7.1 on maximum medications with oral hypoglycemics except sulfonylureas now here with Significant fever up to 103.5, tachycardia, uncontrolled diabetes due to inability to take by mouth medications. Dehydration requiring IV fluids Nausea and vomiting Diffuse abdominal discomfort in the upper abdomen now CT scan suggestive of T2 large mass left lower pole of the kidney highly suggestive of renal cell carcinoma with no obvious intra-abdominal metastasis. CT scan of the chest with IV contrast will be done to rule out metastases. Patient would require urology opinion No evidence of active bacterial / viral infection. Flu swab negative. Cultures negative so far. Urine culture negative so far. Urine analysis was slightly positive for a few WBCs but cultures are negative Initial sinus tachycardia related to a temperature now resolved Normal EKG RECOMMENDATION CT chest with contrast to rule out metastases Normal saline for 1 L after the scan Patient does not have any bone pain will hold off on bone scan Discontinue all his oral hypoglycemics and we will switch him to long-acting Levemir 15 units daily and will use sliding scale NovoLog for meals [place] IV fluids Proton pump inhibitor 40 mg daily Tylenol 500 mg 3 times a day for fever control Naprosyn 200 mg 2 or 3 times a day for high fever Continue losartan 81 mg aspirin Start Levemir 15 units LONG ACTING INSULIN LEVIMER/LANTUS 15 Novolog coverage before meals FSG 80-150, 3 units 151-200, 4 units 201-250, 5 units 251-300, 7 units 301-350, 9 units 351-400, 11 units > 400, 13 units 3. monitor FSGs. prior to meals / fasting /just before bedtime
[2017-08-05 14:06] VITALS: BP 132/70
--- NOTE | 2017-08-05 17:43 | CT SCAN REPORT ---
EXAMINATION: CT CHEST WITH CONTRAST CLINICAL INFORMATION: 46-year-old male found to have large left renal mass on CT scan of the abdomen and pelvis done yesterday. CT scan of the chest is requested to assess for any possible metastatic disease. COMPARISON: CT of the abdomen and pelvis done on 08/04/2017. TECHNIQUE: Multidetector volumetric CT imaging of the chest was obtained after the administration of 95 mL of Optiray 320 intravenous contrast without immediate adverse reactions. Axial MIP volume rendering provided. Sagittal and coronal reformatted images were obtained. DLP: 463.83 mGy-cm FINDINGS: PROGRAM ENGAGEMENT DIRECTOR: Unremarkable. LUNGS: There is no discrete lung nodule and/or mass identified on either side. Linear airspace disease, however, is noted at both lower lobes likely represent hypoventilatory, atelectatic changes. The tracheobronchial tree appears patent. MEDIASTINUM: The mediastinum is normal. PLEURA: There is no pleural effusion. No pleural mass or thickening. AXILLA/CHEST WALL: Multiple shotty bilateral axillary lymph nodes are noted. Soft tissue prominence is noted within both breasts (right greater than left), may represent gynecomastia. UPPER ABDOMEN: Previous CT-detected left renal mass is not included within the [id number] and accordingly not re-evaluated. The visualized upper abdomen is unremarkable. OSSEOUS STRUCTURES: Unremarkable. IMPRESSION: No CT evidence of any metastatic disease to the chest. Incidental note is made of multiple shotty bilateral axillary lymph nodes and soft tissue prominence within both breasts (right greater than left), may represent gynecomastia.
[2017-08-05 23:05] VITALS: BP 120/62
[2017-08-06 06:06] VITALS: BP 116/80
[2017-08-06 08:22] VITALS: BP 116/80
[2017-08-06 08:40] LABS: ABSOLUTE BASOPHIL COUNT 0 /CUMM (0.0-0.2); ABSOLUTE EOSINOPHIL COUNT 0.2 /CUMM (0.0-0.7); ABSOLUTE GRANULOCYTE CT 4.1 /CUMM (1.4-6.5); ABSOLUTE MONOCYTE COUNT 0.9 /CUMM (0.10-0.60); EOSINOPHIL % 2.3 % (0-5); MEAN CORPUSCULAR VOLUME 88.3 FL (80.0-94.0); WHITE BLOOD CELL COUNT 7.1 /CUMM (4.8-10.8)
[2017-08-06 08:52] LABS: ABSOLUTE LYMPH COUNT 1.9 /CUMM (1.2-3.4); BASOPHIL % 0.3 % (0.0-2.0); GRANULOCYTE % 57.6 % (42.2-75.2); MEAN CORPUSCULAR HGB 29.6 PG (27.0-31.0); MEAN CORPUSCULAR HGB CONC 33.6 G/DL (33.0-37.0); MEAN PLATELET VOLUME 7.6 FL (7.4-10.4); PLATELET COUNT 251 /CUMM (130-400); RBC DISTRIBUTION WIDTH 14.6 % (11.5-14.5); RED BLOOD CELL CT 3.54 /CUMM (4.70-6.10)
[2017-08-06 08:57] LABS: HEMATOCRIT 31.3 % (42-52)
--- NOTE | 2017-08-06 09:04 | PN- Housestaff ---
Subjective Follow-up For: Left kidney measures suspicious for RCC presented with paraneoplastic symptoms Subjective: Patient seen and examined. No acute events overnight. MAXIMUM TEMPERATURE 101.7 yesterday afternoon. Overnight tachycardic up to 105 Patient denying any shows, any shortness of breath, chest pain. He denies any nausea or vomiting. Offers no complaints. Patient is supposed to be discharged today. The rest of workup will be done as an outpatient. Review of Systems Constitutional: Reports: see HPI. Objective Last 24 Hrs of Vital Signs/I&O Vital Signs Date Time Temp Pulse Resp B/P B/P Pulse O2 O2 Flow FiO2 Mean Ox Delivery Rate 08/06 821 99.4 97 20 116/80 08/06 0606 99.4 97 20 116/80 95 Room Air 08/05 2305 98.3 109 18 120/62 92 08/05 2247 Room Air 08/05 1809 100.3 08/05 1625 100.3 08/05 1625 100.3 08/05 1450 101.7 08/05 1406 98.5 107 20 132/70 94 Room Air 08/05 1012 98.0 08/05 1010 100.5 101 20 136/90 Intake & Output 08/06 1600 08/06 0800 08/06 0000 Intake Total 240 850 Output Total Balance 240 850 Intake, IV 600 Intake, Oral 240 250 Physical Exam General Appearance: Alert, Oriented X3, Cooperative Cardiovascular: Normal S1, Normal S2 Lungs: Clear to Auscultation Abdomen: No Tenderness Current Medications: Current Medications Sig/Kenn Start time Last Medication Dose Route Stop Time Status Admin Acetaminophen 1,000 MG ONCE ONE 08/05 1430 DC 08/05 N/A 1 UNIT IV 08/05 1444 1450 Acetaminophen 500 MG Q6P PRN 08/05 0145 AC PO Acetaminophen 650 MG Q6P PRN 08/04 2300 DC 08/05 PO 0753 Aspirin 81 MG DAILY 08/06 0900 AC 08/06 PO 0822 Atorvastatin Calcium 20 MG AT BEDTIME 08/05 2100 AC 08/05 PO 2212 Atorvastatin Calcium 20 MG 1700 08/05 1700 DC PO Dextrose/Lactated 1,000 ML Q10H 08/04 2045 DC 08/05 Ringer's IV 08/05 1644 0150 Enoxaparin Sodium 40 MG DAILY 08/05 0900 AC 08/06 SC 0820 Hydrocodone Bitart/ 1 TAB Q6P PRN 08/04 2300 AC Acetaminophen PO Insulin Aspart 0 AT BEDTIME 08/05 2100 CAN SC Insulin Aspart 2 UNITS ONCE ONE 08/05 1745 DC 08/05 SC 08/05 1746 1759 Insulin Aspart 3 UNITS ONCE ONE 08/05 1415 DC 08/05 SC 08/05 1416 1415 Insulin Aspart 0 TIDAC 08/05 0800 AC 08/06 SC 0820 Insulin Detemir 15 UNITS DAILY 08/05 1649 AC 08/06 SC 0821 Losartan Potassium 100 MG DAILY 08/05 0900 AC 08/06 PO 0822 Naproxen 250 MG Q8 08/05 2200 DC PO Naproxen 250 MG Q8P PRN 08/05 1900 AC 08/05 PO 1913 Omeprazole 40 MG DAILY AC 08/05 1255 DC PO Ondansetron HCl 4 MG Q4 HRS NEEDED PRN 08/05 1230 AC 08/05 IV 1338 Oxycodone/ 2 TAB Q6P PRN 08/04 2300 AC Acetaminophen PO Pantoprazole Sodium 40 MG DAILY 08/05 1415 AC 08/06 IV 0820 Sodium Chloride 1,000 ML Q13H 08/05 1300 AC 08/06 IV 08/06 1458 0339 Last 24 Hrs of Lab/Terrence Results Last 24 Hrs of Labs/Mics: Laboratory Tests 08/06/17 0705: Anion Gap 12, Estimated GFR > 60, BUN/Creatinine Ratio 7.1, CBC w Diff NO MAN DIFF REQ, RBC 3.54 L, MCV 88.3, MCH 29.6, MCHC 33.6, RDW 14.6 H, MPV 7.6, Gran % 57.6, Lymphocytes % 26.7, Monocytes % 13.1 H, Eosinophils % 2.3, Basophils % 0.3, Absolute Granulocytes 4.1, Absolute Lymphocytes 1.9, Absolute Monocytes 0.9 H, Absolute Eosinophils 0.2, Absolute Basophils 0 Assessment/Plan Assessment: 46-year-old gentleman with past medical history of diabetes was admitted for abdominal pain and fever of unknown origin and was found to have left kidney mass is highly suspicious for malignancy. List of active problems #1 left kidney mass #2 possible paraneoplastic symptoms in the setting of ?? RCC #3 mild hypothyroid hyponatremia secondary to dehydration-resolved #4 leukocytosis without source of infection-resolved * Carbohydrate consistent diet * Discontinue all his oral hypoglycemics and we will switch him to long-acting Levemir 15 units daily and will use sliding scale NovoLog for meals * Proton pump inhibitor 40 mg daily * Tylenol 500 mg 3 times a day for fever control * Naprosyn 200 mg 2 or 3 times a day for high fever * Watch of antibiotics; fevers of part of her neoplastic symptoms of cancer * Resume his antihypertensive and cholesterol medication * Patient does not have any bone pain will hold off on bone scan * Outpt follow up arranged by Dr. Roblero with Dr. Jordan Lea for biopsy/further testing FC/DVT prophylaxis with Lovenox Problem List: 1. Kidney mass 2. Fever Pain Ratin Pain Location: Generalized abdominal pain/epigastric Pain Goal: Pain 4 or less Pain Plan: prn Tomorrow's Labs & Rationales: none
[2017-08-06] MEDS ORDERED: NAPROXEN250 M1 PO ×3 (09:34→10:53)
[2017-08-06] MEDS ORDERED: ACETAMINOPHEN500 M4 PO ×3 (09:34→10:53)
--- NOTE | 2017-08-06 09:34 | Patient Discharge Instructions ---
Discharge Instructions General Discharge Information You were seen/treated for: Fever of unknown origin Special Instructions: Please follow-up with your PCP after discharge Please follow-up with Dr. Roblero after discharge Please follow-up with Dr. Jordan Lea within 1 week Diet Recommended Diet: Diabetic, As tolerated Activity Activity Self Limited: Yes Acute Coronary Syndrome Inclusion Criteria At DC or during hospital stay patient has or had the following: ACS DIAGNOSIS No Discharge Core Measures Meds if any: Prescribed or Continued at Discharge Meds if any: NOT Prescribed or Continued at Discharge Congestive Heart Failure Inclusion Criteria At DC or during hospital stay patient has or had the following: CHF DIAGNOSIS No Discharge Core Measures Meds if any: Prescribed or Continued at Discharge Meds if any: NOT Prescribed or Continued at Discharge Cerebrovascular accident Inclusion Criteria At DC or during hospital stay patient has or had the following: CVA/TIA Diagnosis No Discharge Core Measures Meds if any: Prescribed or Continued at Discharge Meds if any: NOT Prescribed or Continued at Discharge Venous thromboembolism Inclusion Criteria VTE Diagnosis No VTE Type NONE VTE Confirmed by (Test) NONE Discharge Core Measures - Per Current guidelines, there needs to be overlap - treatment for the first 5 days of Warfarin therapy. - If discharged on Warfarin prior to 5 days of - overlap therapy, the patient will need to be - assessed for post discharge needs including - *Post discharge parental anticoagulation - *Warfarin and/or parental anticoagulation education - *Follow up date to check INR post discharge At least 5 days overlap therapy as Inpatient No Meds if any: Prescribed or Continued at Discharge Note: Overlap Therapy is Warfarin and Anticoagulant Meds if any: NOT Prescribed or Continued at Discharge
[2017-08-06] MEDS ORDERED: LEVEMIR100 UNIT/1 SC ×2 (09:45→10:53)
[2017-08-06] MEDS ORDERED: HUMALOG100 UNIT/2 SC ×2 (09:45→10:53)
[2017-08-06] MEDS ORDERED: OMEPRAZOLE40 M1 PO ×2 (09:47→10:53)
[2017-08-06] MEDS ORDERED: PIOGLITAZONE HC30 M1 PO (11:45)
--- NOTE | 2017-08-06 12:26 | PN- Pulmonary ---
Subjective HPI/Critical Care Issues: Little better Temperature continues to be elevated trending low Nausea is improved No further vomiting Dehydration is better Mild headache Mild abdominal discomfort but much better Afebrile when I examined him Slightly anxious otherwise review of symptoms unremarkable Objective Current Medications: Current Medications Sig/Kenn Start time Last Medication Dose Route Stop Time Status Admin Acetaminophen 1,000 MG ONCE ONE 08/05 1430 DC 08/05 N/A 1 UNIT IV 08/05 1444 1450 Acetaminophen 500 MG Q6P PRN 08/05 0145 AC PO Acetaminophen 650 MG Q6P PRN 08/04 2300 DC 08/05 PO 0753 Aspirin 81 MG DAILY 08/06 0900 AC 08/06 PO 0822 Atorvastatin Calcium 20 MG AT BEDTIME 08/05 2100 AC 08/05 PO 2212 Atorvastatin Calcium 20 MG 1700 08/05 1700 DC PO Dextrose/Lactated 1,000 ML Q10H 08/04 2045 DC 08/05 Ringer's IV 08/05 1644 0150 Enoxaparin Sodium 40 MG DAILY 08/05 0900 08/06 SC 0820 Hydrocodone Bitart/ 1 TAB Q6P PRN 08/04 2300 AC Acetaminophen PO Insulin Aspart 0 AT BEDTIME 08/05 2100 CAN SC Insulin Aspart 2 UNITS ONCE ONE 08/05 1745 DC 08/05 SC 08/05 1746 1759 Insulin Aspart 3 UNITS ONCE ONE 08/05 1415 DC 08/05 SC 08/05 1416 1415 Insulin Aspart 0 TIDAC 08/05 0800 AC 08/06 SC 1210 Insulin Detemir 15 UNITS DAILY 08/05 1649 AC 08/06 SC 0821 Losartan Potassium 100 MG DAILY 08/05 0900 AC 08/06 PO 0822 Naproxen 250 MG Q8 08/05 2200 DC PO Naproxen 250 MG Q8P PRN 08/05 1900 AC 08/05 PO 1913 Omeprazole 40 MG DAILY AC 08/05 1255 DC PO Ondansetron HCl 4 MG Q4 HRS NEEDED PRN 08/05 1230 AC 08/05 IV 1338 Oxycodone/ 2 TAB Q6P PRN 08/04 2300 AC Acetaminophen PO Pantoprazole Sodium 40 MG DAILY 08/05 1415 AC 08/06 IV 0820 Sodium Chloride 1,000 ML Q13H 08/05 1300 AC 08/06 IV 08/06 1458 0339 Vital Signs & I&O Last 24 Hrs of Vitals and I&O: Vital Signs Date Time Temp Pulse Resp B/P B/P Pulse O2 O2 Flow FiO2 Mean Ox Delivery Rate 08/06 0822 99.4 97 20 116/80 08/06 0606 99.4 97 20 116/80 95 Room Air 08/05 2305 98.3 109 18 120/62 92 08/05 2247 Room Air 08/05 1809 100.3 08/05 1625 100.3 08/05 1625 100.3 08/05 1450 101.7 08/05 1406 98.5 107 20 132/70 94 Room Air Intake & Output 08/06 1600 08/06 0800 08/06 0000 Intake Total 240 850 Output Total Balance 240 850 Intake, IV 600 Intake, Oral 240 250 Impression/Plan Impression/Plan Impression/Plan: General Appearance: Alert, Oriented X3, Cooperative Cardiovascular: Normal S1, Normal S2 Lungs: Clear to Auscultation Abdomen: No Tenderness Extremity no cyanosis clubbing Left-sided gynecomastia noted DATA COLLECTION SPECIALIST exam normal Laboratory Tests 08/06 08/05 08/05 0705 0802 0802 Chemistry Sodium (137 - 145 mmol/L) 141 138 Potassium (3.5 - 5.1 mmol/L) 3.8 3.9 Chloride (98 - 107 mmol/L) 105 104 Carbon Dioxide (22 - 30 mmol/L) 24 22 Anion Gap (5 - 16) 12 12 BUN (9 - 20 mg/dL) 5 L 5 L Creatinine (0.7 - 1.2 mg/dL) 0.7 0.6 L Estimated GFR (>60 ml/min) > 60 > 60 BUN/Creatinine Ratio (7 - 25 %) 7.1 8.3 Lactic Acid (0.7 - 2.1 mmol/L) 1.4 Total Bilirubin (0.2 - 1.3 mg/dL) 0.8 Direct Bilirubin (< 0.4 mg/dL) 0.5 H AST (17 - 59 U/L) 9 L ALT (21 - 72 U/L) 18 L Alkaline Phosphatase (< 127 U/L) 59 Total Protein (6.3 - 8.2 g/dL) 5.4 L Albumin (3.5 - 5.0 g/dL) 2.7 L Hematology CBC w Diff NO MAN DIFF REQ WBC (4.8 - 10.8 /CUMM) 7.1 RBC (4.70 - 6.10 /CUMM) 3.54 L Hgb (14.0 - 18.0 G/DL) 10.5 L Hct (42 - 52 %) 31.3 L MCV (80.0 - 94.0 FL) 88.3 MCH (27.0 - 31.0 PG) 29.6 MCHC (33.0 - 37.0 G/DL) 33.6 RDW (11.5 - 14.5 %) 14.6 H Plt Count (130 - 400 /CUMM) 251 MPV (7.4 - 10.4 FL) 7.6 Gran % (42.2 - 75.2 %) 57.6 Lymphocytes % (20.5 - 51.1 %) 26.7 Monocytes % (1.7 - 9.3 %) 13.1 H Eosinophils % (0 - 5 %) 2.3 Basophils % (0.0 - 2.0 %) 0.3 Absolute Granulocytes (1.4 - 6.5 /CUMM) 4.1 Absolute Lymphocytes (1.2 - 3.4 /CUMM) 1.9 Absolute Monocytes (0.10 - 0.60 /CUMM) 0.9 H Absolute Eosinophils (0.0 - 0.7 /CUMM) 0.2 Absolute Basophils (0.0 - 0.2 /CUMM) 0 Serology HIV 1&2 Ab Western Blot (NONREACTIVE) NONREACTIVE 08/04 08/04 1908 1800 Chemistry Sodium (137 - 145 mmol/L) 135 L Potassium (3.5 - 5.1 mmol/L) 4.1 Chloride (98 - 107 mmol/L) 97 L Carbon Dioxide (22 - 30 mmol/L) 24 Anion Gap (5 - 16) 14 BUN (9 - 20 mg/dL) 9 Creatinine (0.7 - 1.2 mg/dL) 0.9 Estimated GFR (>60 ml/min) > 60 BUN/Creatinine Ratio (7 - 25 %) 10.0 Glucose (65 - 99 mg/dL) 224 H Hemoglobin A1c (4.2 - 5.8 %) Pending Serum Osmolality (285 - 295 MOSM/KG) 283 L Lactic Acid (0.7 - 2.1 mmol/L) 1.4 Calcium (8.4 - 10.2 mg/dL) 8.6 Total Bilirubin (0.2 - 1.3 mg/dL) 1.5 H AST (17 - 59 U/L) 12 L ALT (21 - 72 U/L) 26 Alkaline Phosphatase (< 127 U/L) 81 Troponin I (<0.11 ng/ml) < 0.01 Total Protein (6.3 - 8.2 g/dL) 7.2 Albumin (3.5 - 5.0 g/dL) 4.0 Globulin (1.9 - 4.2 gm/dL) 3.2 Albumin/Globulin Ratio (1.1 - 2.2 %) 1.3 Triglycerides (<150 mg/dL) 230 H Cholesterol (< 200 MG/DL) 119 LDL Cholesterol, Calc (65 - 129 mg/dL) 50 L HDL Cholesterol (40 - 60 mg/dL) 23 L Cholesterol/HDL Ratio (0.00 - 4.88 %) 5 H Amylase (30 - 110 U/L) 57 Lipase (23 - 300 U/L) 198 Hematology CBC w Diff NO MAN DIFF REQ WBC (4.8 - 10.8 /CUMM) 9.9 RBC (4.70 - 6.10 /CUMM) 4.35 L Hgb (14.0 - 18.0 G/DL) 12.8 L Hct (42 - 52 %) 38.1 L MCV (80.0 - 94.0 FL) 87.5 MCH (27.0 - 31.0 PG) 29.5 MCHC (33.0 - 37.0 G/DL) 33.7 RDW (11.5 - 14.5 %) 14.6 H Plt Count (130 - 400 /CUMM) 298 MPV (7.4 - 10.4 FL) 7.5 Gran % (42.2 - 75.2 %) 68.3 Lymphocytes % (20.5 - 51.1 %) 21.0 Monocytes % (1.7 - 9.3 %) 10.3 H Eosinophils % (0 - 5 %) 0.2 Basophils % (0.0 - 2.0 %) 0.2 Absolute Granulocytes (1.4 - 6.5 /CUMM) 6.8 H Absolute Lymphocytes (1.2 - 3.4 /CUMM) 2.1 Absolute Monocytes (0.10 - 0.60 /CUMM) 1.0 H Absolute Eosinophils (0.0 - 0.7 /CUMM) 0 Absolute Basophils (0.0 - 0.2 /CUMM) 0 Serology Lyme Disease Antibody Pending Toxicology Acetone Level (NEGATIVE) NEGATIVE Urines Urine Color (YEL,AMB,STR) ORANG H Urine Clarity (CLEAR) CLDY H Urine pH (5.0 - 8.0) 5.5 Ur Specific [place] (1.001 - 1.035) >= 1.030 Urine Protein (NEG,<30 MG/DL) 100 H Urine Ketones (NEG) 15 H Urine Nitrite (NEG) NEG Urine Bilirubin (NEG) NEG@ICTO Urine Urobilinogen (0.1 - 1.0 EU/dl) 0.2 Ur Leukocyte Esterase (NEG) TRACE H Ur Microscopic SEDIMENT EXAMINED Urine RBC (0 - 5 /HPF) 1-3 Urine WBC (0 - 2 /HPF) 5-10 H Ur Epithelial Cells (NONE,FEW) FEW Urine Bacteria (NEG/NONE) FEW H Urine Mucus (FEW,NONE) MANY H Urine Hemoglobin (NEG) NEG Urine Glucose (N MG/DL) 100 H Microbiology Date/Time Procedure - Status Source Growth 08/04 2218 Streptococcus pneumoniae Antigen (M - COMP URINE ROUT 08/04 1908 Legionella Antigen - COMP URINE ROUT 08/04 1908 Urine Culture - COMP URINE ROUT 08/04 1840 Blood Culture - RES BLOOD 08/04 1800 Blood Culture - RES BLOOD 08/04 1610 Influenza Virus A & B Rapid Smear - COMP NASOPHARYN PATIENT: EDIS GUAN PRESENT AGE: 46 PATIENT ACCOUNT NO: [id number] : 72 LOCATION: 2NA ORDERING PHYSICIAN: Greta Singleton MD SERVICE DATE: 08/05/178007 EXAM TYPE: CAT - CT CHEST W IV CONTRAST EXAMINATION: CT CHEST WITH CONTRAST CLINICAL INFORMATION: 46-year-old male found to have large left renal mass on CT scan of the abdomen and pelvis done yesterday. CT scan of the chest is requested to assess for any possible metastatic disease. COMPARISON: CT of the abdomen and pelvis done on 08/04/2017. TECHNIQUE: Multidetector volumetric CT imaging of the chest was obtained after the administration of 95 mL of Optiray 320 intravenous contrast without immediate adverse reactions. Axial MIP volume rendering provided. Sagittal and coronal reformatted images were obtained. DLP: 463.83 mGy-cm FINDINGS: PRODUCTION TESTER: Unremarkable. LUNGS: There is no discrete lung nodule and/or mass identified on either side. Linear airspace disease, however, is noted at both lower lobes likely represent hypoventilatory, atelectatic changes. The tracheobronchial tree appears patent. MEDIASTINUM: The mediastinum is normal. PLEURA: There is no pleural effusion. No pleural mass or thickening. AXILLA/CHEST WALL: Multiple shotty bilateral axillary lymph nodes are noted. Soft tissue prominence is noted within both breasts (right greater than left), may represent gynecomastia. UPPER ABDOMEN: Previous CT-detected left renal mass is not included within the [id number] and accordingly not re-evaluated. The visualized upper abdomen is unremarkable. OSSEOUS STRUCTURES: Unremarkable. IMPRESSION: No CT evidence of any metastatic disease to the chest. Incidental note is made of multiple shotty bilateral axillary lymph nodes and soft tissue prominence within both breasts (right greater than left), may represent gynecomastia. DICTATED BY: Luis Manuel Bae MD DATE/TIME DICTATED:08/05/171637 SUPERVISOR EDUCATION:BARNEY DATE/TIME TRANSCRIBED:08/05/171637 CONFIDENTIAL, DO NOT COPY WITHOUT APPROPRIATE AUTHORIZATION. <Electronically signed in Other Vendor System> SIGNED BY: Luis Manuel Bae MD 08/05/17 174 PATIENT: EDIS GUAN PRESENT AGE: 46 PATIENT ACCOUNT NO: [id number] : 72 LOCATION: 2NA ORDERING PHYSICIAN: Greta Singleton MD SERVICE DATE: 08/05/17061 EXAM TYPE: CAT - CT CHEST W IV CONTRAST EXAMINATION: CT CHEST WITH CONTRAST CLINICAL INFORMATION: 46-year-old male found to have large left renal mass on CT scan of the abdomen and pelvis done yesterday. CT scan of the chest is requested to assess for any possible metastatic disease. COMPARISON: CT of the abdomen and pelvis done on 08/04/2017. TECHNIQUE: Multidetector volumetric CT imaging of the chest was obtained after the administration of 95 mL of Optiray 320 intravenous contrast without immediate adverse reactions. Axial MIP volume rendering provided. Sagittal and coronal reformatted images were obtained. DLP: 463.83 mGy-cm FINDINGS: PRODUCTION TESTER: Unremarkable. LUNGS: There is no discrete lung nodule and/or mass identified on either side. Linear airspace disease, however, is noted at both lower lobes likely represent hypoventilatory, atelectatic changes. The tracheobronchial tree appears patent. MEDIASTINUM: The mediastinum is normal. PLEURA: There is no pleural effusion. No pleural mass or thickening. AXILLA/CHEST WALL: Multiple shotty bilateral axillary lymph nodes are noted. Soft tissue prominence is noted within both breasts (right greater than left), may represent gynecomastia. UPPER ABDOMEN: Previous CT-detected left renal mass is not included within the [id number] and accordingly not re-evaluated. The visualized upper abdomen is unremarkable. OSSEOUS STRUCTURES: Unremarkable. IMPRESSION: No CT evidence of any metastatic disease to the chest. Incidental note is made of multiple shotty bilateral axillary lymph nodes and soft tissue prominence within both breasts (right greater than left), may represent gynecomastia. DICTATED BY: Luis Manuel Bae MD DATE/TIME DICTATED:08/05/171637 SUPERVISOR EDUCATION:BARNEY DATE/TIME TRANSCRIBED:08/05/171637 CONFIDENTIAL, DO NOT COPY WITHOUT APPROPRIATE AUTHORIZATION. <Electronically signed in Other Vendor System> SIGNED BY: Luis Manuel Bae MD 08/05/17 7175 This is a gentleman with type 2 diabetes, essential hypertension, hyperlipidemia , vitamin D deficiency, obesity, on and off snoring with upper airway resistant syndrome, recent A1c of 7.1 on maximum medications with oral hypoglycemics except sulfonylureas now here with Significant fever up to 103.5, tachycardia, dehydration, poor by mouth intake, uncontrolled diabetes due to inability to take by mouth medications. Since admission he had required significant amount of IV fluids and he was unable to take by mouth now slowly improving. Did have significant nausea vomitin yesterday and that seems to be resolving. Initially he had significant Diffuse abdominal discomfort in the upper abdomen now CT scan suggestive of large mass left lower pole of the kidney highly suggestive of renal cell carcinoma with no obvious intra-abdominal metastasis. CT scan of the chest with IV contrast revealed gynecomastia with shoddy lymphadenopathy in the axilla. Patient has had previous hydradenitis.. Patient would require urology opinion No evidence of active bacterial / viral infection. Flu swab negative. Cultures negative so far. Urine culture negative so far. Urine analysis was slightly positive for a few WBCs but cultures are negative Initial sinus tachycardia related to a temperature now better controlled Normal EKG Issues Fever of unknown etiology now probably related to tumor fever responding to Tylenol and nonsteroidals Significant abdominal pain, vomiting and nausea was likely related to large renal mass suggestive of renal cell carcinoma slightly improving Poor by mouth intake and dehydration and significant tachycardia upon admission now resolved with IV fluids Uncontrolled diabetes with inability to take by mouth medications now being switched to insulin with long-acting insulin 15 units and sliding scale with NovoLog Hypertension of improved Significant anemia noted after admission most likely due to hemodilution no evidence of GI bleed Vitamin D deficiency
--- NOTE | 2017-08-06 12:32 | Discharge Summary ---
Visit Information Visit Dates Admission Date: 08/04/17 Discharge Date: 08/06/2017 Hospital Course Course Attending Physician: Joseph Roblero MD Primary Care Physician: Joseph Roblero MD Hospital Course: This is a gentleman with type 2 diabetes, essential hypertension, hyperlipidemia , vitamin D deficiency, obesity, on and off snoring with upper airway resistant syndrome, recent A1c of 7.1 on maximum medications with oral hypoglycemics except sulfonylureas now here with Significant fever up to 103.5, tachycardia, dehydration, poor by mouth intake, uncontrolled diabetes due to inability to take by mouth medications. Since admission he had required significant amount of IV fluids and he was unable to take by mouth now slowly improving. Did have significant nausea vomitin yesterday and that seems to be resolving. Initially he had significant Diffuse abdominal discomfort in the upper abdomen now CT scan suggestive of large mass left lower pole of the kidney highly suggestive of renal cell carcinoma with no obvious intra-abdominal metastasis. CT scan of the chest with IV contrast revealed gynecomastia with shoddy lymphadenopathy in the axilla. Patient has had previous hydradenitis.. Patient would require urology opinion No evidence of active bacterial / viral infection. Flu swab negative. Cultures negative so far. Urine culture negative so far. Urine analysis was slightly positive for a few WBCs but cultures are negative Initial sinus tachycardia related to a temperature now better controlled Normal EKG Issues Fever of unknown etiology now probably related to tumor fever responding to Tylenol and nonsteroidals Significant abdominal pain, vomiting and nausea was likely related to large renal mass suggestive of renal cell carcinoma slightly improving Poor by mouth intake and dehydration and significant tachycardia upon admission now resolved with IV fluids Uncontrolled diabetes with inability to take by mouth medications now being switched to insulin with long-acting insulin 15 units and sliding scale with NovoLog Hypertension of improved Significant anemia noted after admission most likely due to hemodilution no evidence of GI bleed Vitamin D deficiency Allergies: Coded Allergies: No Known Allergies (08/04/17) Significant Procedures: Laboratory Tests 08/06 08/05 08/05 0705 0802 0802 Chemistry Sodium (137 - 145 mmol/L) 141 138 Potassium (3.5 - 5.1 mmol/L) 3.8 3.9 Chloride (98 - 107 mmol/L) 105 104 Carbon Dioxide (22 - 30 mmol/L) 24 22 Anion Gap (5 - 16) 12 12 BUN (9 - 20 mg/dL) 5 L 5 L Creatinine (0.7 - 1.2 mg/dL) 0.7 0.6 L Estimated GFR (>60 ml/min) > 60 > 60 BUN/Creatinine Ratio (7 - 25 %) 7.1 8.3 Lactic Acid (0.7 - 2.1 mmol/L) 1.4 Total Bilirubin (0.2 - 1.3 mg/dL) 0.8 Direct Bilirubin (< 0.4 mg/dL) 0.5 H AST (17 - 59 U/L) 9 L ALT (21 - 72 U/L) 18 L Alkaline Phosphatase (< 127 U/L) 59 Total Protein (6.3 - 8.2 g/dL) 5.4 L Albumin (3.5 - 5.0 g/dL) 2.7 L Hematology CBC w Diff NO MAN DIFF REQ WBC (4.8 - 10.8 /CUMM) 7.1 RBC (4.70 - 6.10 /CUMM) 3.54 L Hgb (14.0 - 18.0 G/DL) 10.5 L Hct (42 - 52 %) 31.3 L MCV (80.0 - 94.0 FL) 88.3 MCH (27.0 - 31.0 PG) 29.6 MCHC (33.0 - 37.0 G/DL) 33.6 RDW (11.5 - 14.5 %) 14.6 H Plt Count (130 - 400 /CUMM) 251 MPV (7.4 - 10.4 FL) 7.6 Gran % (42.2 - 75.2 %) 57.6 Lymphocytes % (20.5 - 51.1 %) 26.7 Monocytes % (1.7 - 9.3 %) 13.1 H Eosinophils % (0 - 5 %) 2.3 Basophils % (0.0 - 2.0 %) 0.3 Absolute Granulocytes (1.4 - 6.5 /CUMM) 4.1 Absolute Lymphocytes (1.2 - 3.4 /CUMM) 1.9 Absolute Monocytes (0.10 - 0.60 /CUMM) 0.9 H Absolute Eosinophils (0.0 - 0.7 /CUMM) 0.2 Absolute Basophils (0.0 - 0.2 /CUMM) 0 Serology HIV 1&2 Ab Western Blot (NONREACTIVE) NONREACTIVE 08/04 08/04 1908 1800 Chemistry Sodium (137 - 145 mmol/L) 135 L Potassium (3.5 - 5.1 mmol/L) 4.1 Chloride (98 - 107 mmol/L) 97 L Carbon Dioxide (22 - 30 mmol/L) 24 Anion Gap (5 - 16) 14 BUN (9 - 20 mg/dL) 9 Creatinine (0.7 - 1.2 mg/dL) 0.9 Estimated GFR (>60 ml/min) > 60 BUN/Creatinine Ratio (7 - 25 %) 10.0 Glucose (65 - 99 mg/dL) 224 H Hemoglobin A1c (4.2 - 5.8 %) Pending Serum Osmolality (285 - 295 MOSM/KG) 283 L Lactic Acid (0.7 - 2.1 mmol/L) 1.4 Calcium (8.4 - 10.2 mg/dL) 8.6 Total Bilirubin (0.2 - 1.3 mg/dL) 1.5 H AST (17 - 59 U/L) 12 L ALT (21 - 72 U/L) 26 Alkaline Phosphatase (< 127 U/L) 81 Troponin I (<0.11 ng/ml) < 0.01 Total Protein (6.3 - 8.2 g/dL) 7.2 Albumin (3.5 - 5.0 g/dL) 4.0 Globulin (1.9 - 4.2 gm/dL) 3.2 Albumin/Globulin Ratio (1.1 - 2.2 %) 1.3 Triglycerides (<150 mg/dL) 230 H Cholesterol (< 200 MG/DL) 119 LDL Cholesterol, Calc (65 - 129 mg/dL) 50 L HDL Cholesterol (40 - 60 mg/dL) 23 L Cholesterol/HDL Ratio (0.00 - 4.88 %) 5 H Amylase (30 - 110 U/L) 57 Lipase (23 - 300 U/L) 198 Hematology CBC w Diff NO MAN DIFF REQ WBC (4.8 - 10.8 /CUMM) 9.9 RBC (4.70 - 6.10 /CUMM) 4.35 L Hgb (14.0 - 18.0 G/DL) 12.8 L Hct (42 - 52 %) 38.1 L MCV (80.0 - 94.0 FL) 87.5 MCH (27.0 - 31.0 PG) 29.5 MCHC (33.0 - 37.0 G/DL) 33.7 RDW (11.5 - 14.5 %) 14.6 H Plt Count (130 - 400 /CUMM) 298 MPV (7.4 - 10.4 FL) 7.5 Gran % (42.2 - 75.2 %) 68.3 Lymphocytes % (20.5 - 51.1 %) 21.0 Monocytes % (1.7 - 9.3 %) 10.3 H Eosinophils % (0 - 5 %) 0.2 Basophils % (0.0 - 2.0 %) 0.2 Absolute Granulocytes (1.4 - 6.5 /CUMM) 6.8 H Absolute Lymphocytes (1.2 - 3.4 /CUMM) 2.1 Absolute Monocytes (0.10 - 0.60 /CUMM) 1.0 H Absolute Eosinophils (0.0 - 0.7 /CUMM) 0 Absolute Basophils (0.0 - 0.2 /CUMM) 0 Serology Lyme Disease Antibody Pending Toxicology Acetone Level (NEGATIVE) NEGATIVE Urines Urine Color (YEL,AMB,STR) ORANG H Urine Clarity (CLEAR) CLDY H Urine pH (5.0 - 8.0) 5.5 Ur Specific [place] (1.001 - 1.035) >= 1.030 Urine Protein (NEG,<30 MG/DL) 100 H Urine Ketones (NEG) 15 H Urine Nitrite (NEG) NEG Urine Bilirubin (NEG) NEG@ICTO Urine Urobilinogen (0.1 - 1.0 EU/dl) 0.2 Ur Leukocyte Esterase (NEG) TRACE H Ur Microscopic SEDIMENT EXAMINED Urine RBC (0 - 5 /HPF) 1-3 Urine WBC (0 - 2 /HPF) 5-10 H Ur Epithelial Cells (NONE,FEW) FEW Urine Bacteria (NEG/NONE) FEW H Urine Mucus (FEW,NONE) MANY H Urine Hemoglobin (NEG) NEG Urine Glucose (N MG/DL) 100 H Microbiology Date/Time Procedure - Status Source Growth 08/04 2217 Streptococcus pneumoniae Antigen (M - COMP URINE ROUT 08/05 1907 Legionella Antigen - COMP URINE ROUT 08/05 1907 Urine Culture - COMP URINE ROUT 08/04 1840 Blood Culture - RES BLOOD 08/04 1800 Blood Culture - RES BLOOD 08/04 1610 Influenza Virus A & B Rapid Smear - COMP NASOPHARYN PATIENT: EDIS GUAN PRESENT AGE: 46 PATIENT ACCOUNT NO: [id number] : 72 LOCATION: 2NA ORDERING PHYSICIAN: Greta Singleton MD SERVICE DATE: 08/05/172890 EXAM TYPE: CAT - CT CHEST W IV CONTRAST EXAMINATION: CT CHEST WITH CONTRAST CLINICAL INFORMATION: 46-year-old male found to have large left renal mass on CT scan of the abdomen and pelvis done yesterday. CT scan of the chest is requested to assess for any possible metastatic disease. COMPARISON: CT of the abdomen and pelvis done on 08/04/2017. TECHNIQUE: Multidetector volumetric CT imaging of the chest was obtained after the administration of 95 mL of Optiray 320 intravenous contrast without immediate adverse reactions. Axial MIP volume rendering provided. Sagittal and coronal reformatted images were obtained. DLP: 463.83 mGy-cm FINDINGS: TELEHEALTH DIRECTOR: Unremarkable. LUNGS: There is no discrete lung nodule and/or mass identified on either side. Linear airspace disease, however, is noted at both lower lobes likely represent hypoventilatory, atelectatic changes. The tracheobronchial tree appears patent. MEDIASTINUM: The mediastinum is normal. PLEURA: There is no pleural effusion. No pleural mass or thickening. AXILLA/CHEST WALL: Multiple shotty bilateral axillary lymph nodes are noted. Soft tissue prominence is noted within both breasts (right greater than left), may represent gynecomastia. UPPER ABDOMEN: Previous CT-detected left renal mass is not included within the [id number] and accordingly not re-evaluated. The visualized upper abdomen is unremarkable. OSSEOUS STRUCTURES: Unremarkable. IMPRESSION: No CT evidence of any metastatic disease to the chest. Incidental note is made of multiple shotty bilateral axillary lymph nodes and soft tissue prominence within both breasts (right greater than left), may represent gynecomastia. DICTATED BY: Luis Manuel Bae MD DATE/TIME DICTATED:08/05/171637 DOCUMENT SPECIALIST:BARNEY DATE/TIME TRANSCRIBED:08/05/171637 CONFIDENTIAL, DO NOT COPY WITHOUT APPROPRIATE AUTHORIZATION. <Electronically signed in Other Vendor System> SIGNED BY: Luis Manuel Bae MD 08/05/17 5835 PATIENT: EDIS GUAN PRESENT AGE: 46 PATIENT ACCOUNT NO: [id number] : 72 LOCATION: 2NA ORDERING PHYSICIAN: Greta Singleton MD SERVICE DATE: 08/05/17 EXAM TYPE: CAT - CT CHEST W IV CONTRAST EXAMINATION: CT CHEST WITH CONTRAST CLINICAL INFORMATION: 46-year-old male found to have large left renal mass on CT scan of the abdomen and pelvis done yesterday. CT scan of the chest is requested to assess for any possible metastatic disease. COMPARISON: CT of the abdomen and pelvis done on 08/04/2017. TECHNIQUE: Multidetector volumetric CT imaging of the chest was obtained after the administration of 95 mL of Optiray 320 intravenous contrast without immediate adverse reactions. Axial MIP volume rendering provided. Sagittal and coronal reformatted images were obtained. DLP: 463.83 mGy-cm FINDINGS: TELEHEALTH DIRECTOR: Unremarkable. LUNGS: There is no discrete lung nodule and/or mass identified on either side. Linear airspace disease, however, is noted at both lower lobes likely represent hypoventilatory, atelectatic changes. The tracheobronchial tree appears patent. MEDIASTINUM: The mediastinum is normal. PLEURA: There is no pleural effusion. No pleural mass or thickening. AXILLA/CHEST WALL: Multiple shotty bilateral axillary lymph nodes are noted. Soft tissue prominence is noted within both breasts (right greater than left), may represent gynecomastia. UPPER ABDOMEN: Previous CT-detected left renal mass is not included within the [id number] and accordingly not re-evaluated. The visualized upper abdomen is unremarkable. OSSEOUS STRUCTURES: Unremarkable. IMPRESSION: No CT evidence of any metastatic disease to the chest. Incidental note is made of multiple shotty bilateral axillary lymph nodes and soft tissue prominence within both breasts (right greater than left), may represent gynecomastia. DICTATED BY: Luis Manuel Bae MD DATE/TIME DICTATED:08/05/171637 DOCUMENT SPECIALIST:BARNEY DATE/TIME TRANSCRIBED:08/05/171637 CONFIDENTIAL, DO NOT COPY WITHOUT APPROPRIATE AUTHORIZATION. <Electronically signed in Other Vendor System> SIGNED BY: Luis Manuel Bae MD 08/05/17 8756 Disposition Summary Disposition Principal Diagnosis: Fever of unknown etiology most likely fever due to malignancy Additional Diagnosis: Dehydration requiring intravenous fluids, due to nausea vomiting and poor by mouth intake Sinus tachycardia due to dehydration Severe abdominal pain most likely related to large renal cell mass Vitamin D deficiency Uncontrolled diabetes now requiring insulin Hypertension Gynecomastia Axillary lymphadenopathy Discharge Disposition: home or self care Discharge Instructions General Discharge Information Code Status: Full Code Patient's Diet: Low fat 1800-calorie [place] [employer] diet Patient's Activity: Activity as tolerated Follow-Up Instructions/Appts: Needs to follow up with Dr. Roblero Needs to follow up with urology at [facility] Mammogram to be done as outpatient Medications at Discharge Discharge Medications: Stop taking the following medications: Metformin HCl (Metformin HCl) 850 MG TABLET ORAL TWICE DAILY Qty = 180 Empagliflozin (Jardiance) 10 MG TABLET ORAL DAILY Qty = 90 Sitagliptin Phosphate (Januvia) 100 MG TABLET ORAL DAILY Qty = 90 Continue taking these medications: Aspirin (Ecotrin*) 81 MG TABLET.DR 1 Tablet ORAL DAILY Comments: Last Taken: 08/06/17 Time: 08:22 AM Atorvastatin Calcium (Atorvastatin Calcium) 20 MG TABLET 1 Tablet ORAL DAILY Qty = 90 Comments: Last Taken: 08/05/17 Time: 22:12 PM Valsartan (Valsartan) 160 MG TABLET 1 Tablet ORAL DAILY Qty = 90 Comments: NOT GIVEN IN HOSPITAL Cholecalciferol (Vitamin D3) (Vitamin D) (Unknown Strength) TABLET Unknown Dose ORAL DAILY Comments: NOT GIVEN IN HOSPITAL Start taking the following new medications: Omeprazole (Omeprazole) 40 MG CAPSULE.DR 1 Capsule ORAL DAILY Qty = 30 No Refills Instructions: . Comments: IV PROTONIX GIVEN IN HOSPITAL Last Taken: 08/06/17 Time: 08:20 AM Naproxen (Naproxen) 250 MG TABLET 1 Tablet ORAL EVERY 8 HOURS NEEDED as needed for HIGH FEVER Qty = 20 No Refills Instructions: .. Comments: NOT GIVEN IN HOSPITAL Acetaminophen (Acetaminophen) 500 MG TABLET 1 Tablet ORAL EVERY SIX HOURS NEEDED as needed for FEVER Qty = 30 No Refills Instructions: .. Comments: Last Taken: 08/05/17 Time: 07:53 AM Insulin Detemir (Levemir) 100 UNIT/ML VIAL 15 Unit Inject into fatty tissue DAILY Qty = 1 No Refills Instructions: . Comments: Last Taken: 08/06/17 Time: 08:21 AM Insulin Lispro (Humalog) 100 UNIT/ML VIAL 0 Inject into fatty tissue SEE INSTRUCTIONS Qty = 30 No Refills Instructions: 4 UNITS BEFORE BREAKFAST AND 6 UNITS BEFORE DINNER DAILY ADDITIONAL CORRECTION DOSING: IF BG 151-200 GIVE 4 UNITS, 201-250 GIVE 5 UNITS, 251-300 GIVE 7 UNITS, 301-359 GIVE 9 UNITS, 351-400 GIVE 11 UNITS, GREATER THAN 400 GIVE 13 UNITS. Comments: NOT GIVEN IN HOSPITAL Copies To: Osbaldo BRAVO,Joseph Schaefer; Venu BRAVO,Jordan Stone
== END 2017-08-06 12:15 | DRG 687 ==
LOC: ERH 17:38 → ERHI 23:43 → 2NA 23:43 → ENRESERV 08-05 00:03 → 2NA 08-05 01:04 → ENPENDDIS 08-06 11:36 → 2NA 08-06 12:15
PROVIDERS: Physician Assistant Medical
DX: C64.2 Malignant neoplasm of left kidney, except renal pelvis (principal); E87.1 Hypo-osmolality and hyponatremia; E86.0 Dehydration; E11.65 Type 2 diabetes mellitus with hyperglycemia; R59.0 Localized enlarged lymph nodes; E03.9 Hypothyroidism, unspecified; R50.81 Fever presenting with conditions classified elsewhere; D72.829 Elevated white blood cell count, unspecified; N62 Hypertrophy of breast; E55.9 Vitamin D deficiency, unspecified; E78.1 Pure hyperglyceridemia; I10 Essential (primary) hypertension; E78.5 Hyperlipidemia, unspecified; E66.9 Obesity, unspecified; Z68.32 Body mass index [BMI] 32.0-32.9, adult; G47.8 Other sleep disorders; R00.0 Tachycardia, unspecified; D64.89 Other specified anemias; Z79.84 Long term (current) use of oral hypoglycemic drugs
CPT/HCPCS: 2NAP; 86618; ERO; 36415; 36592; 71046; 74177; 81001; 82436; 87040; 87086; 87389; 87449; 87450; 87804; 87804-59; 93005; 93010; 96361; 96374; 96375; J0131; J1650; J2405; J3490